=== PATIENT | female | born 1970 | race Caucasian/White ===

== ENCOUNTER 2020-05-17 00:23 | Emergency (ER) | payer MEDICARE, SELFPAY ==
[2020-05-17 00:24] VITALS: BP 136/71; PULSE 87; RESP 14; TEMP 36.8; O2SAT 99; BMI 34.0
[2020-05-17 00:48] LABS: Microscopic, Urine URINE MICROSCOPIC (MICROSCOPIC)
[2020-05-17 00:50] LABS: Appearance,Urine CLEAR (Clear); Bilirubin,Urine Negative (Negative); Blood, Urine TRACE-L (Negative); Color,Urine YELLOW (Yellow); Glucose,Urine (UA) Negative (Negative); Ketones,Urine Negative (Negative); Leukocyte Esterase,Urine 1+ (Negative); Nitrate,Urine Negative (Negative); PH,Urine 6.5 (5.0-8.5); Protein,Urine Negative (Negative); Specific Gravity, Urine <= 1.005 (1.005-1.030); Urobilinogen,Urine 0.2 EU/dl (0.2)
--- NOTE | 2020-05-17 00:51 | CT_ITS ---
PROCEDURE: CT ABDOMEN PELVIS W CON CLINICAL INDICATION: LLQ Left lower quadrant pain COMPARISON: CT ABDPELW CT abdomen pelvis w con from 09/20/2018 TECHNIQUE: IV Contrast: 75ML Isovue 370 Oral Contrast None Axial images obtained with sagittal and coronal reformats. All CT scans at the facility use one or more dose reduction, viz: automated exposure control, ma/kV adjustment per patient size (including targeted exams where dose is matched to indication, i.e. head), or iterative reconstruction technique. FINDINGS: LOWER THORAX: No acute finding ABDOMEN & PELVIS: Prior cholecystectomy. The liver and spleen have an unremarkable appearance. There is mild prominence of the pancreatic head which in part could be due to overlying unopacified duodenum. Repeat exam with pancreatic protocol may confirm with both IV and oral contrast. There are few small mesenteric lymph nodes. Minimal nodularity noted in the left adrenal gland nonspecific and not significantly changed. 2.7 cm right renal cyst. No renal or ureteral calculi. No intestinal obstruction or free air. There is non rotation of the bowel with small bowel on the right and large bowel on the left. No evidence of appendicitis or diverticulitis. The appendix is located in the right pelvic region. Urinary bladder is somewhat distended. There has been a prior hysterectomy. There is a small umbilical hernia containing fat. IMPRESSION: 1. No acute finding. 2. Mild prominence of the pancreatic head. Follow-up with pancreatic protocol with both IV and oral contrast may provide further evaluation. Dictated by: Frantz Vera MD 05/17/2020 08:39 Frantz Vera MD in [place] 05/17/2020 08:39
[2020-05-17 00:53] LABS: Basophils % 0.2 % (0.1-2.0); Eosinophils # 0.1 K/mm3 (0.0-0.4); Eosinophils % 0.8 % (0.1-12.0); Hematocrit 40.4 % (37.0-47.0); Hemoglobin 13.4 g/dL (12.2-16.2); Lymphocytes # 2.9 K/mm3 (0.7-4.5); Lymphocytes % 25.9 % (10-50); Mean Corpuscular HGB Conc 33.1 g/dL (31.8-35.4); Mean Corpuscular Hemoglobin 29.9 pg (27.0-31.2); Mean Corpuscular Volume 90.2 fl (81-99); Mean Platelet Volume 8.3 fl (7.4-10.4); Monocytes # 0.5 K/mm3 (0.1-1.0); Monocytes % 4.7 % (1.7-9.3); Neutrophils # 7.7 K/mm3 (1.8-7.8); Neutrophils % 68.4 % (37.0-80.0); Platelet Count 353 K/mm3 (142-424); Red Blood Count 4.48 M/mm3 (4.20-5.40); Red Cell Distribution Width 13.4 % (11.5-17.5); White Blood Count 11.2 K/mm3 (4.8-10.8)
[2020-05-17 00:53] LABS: WBC,Urine 20-50 #/hpf (0-3)
[2020-05-17 00:59] LABS: Chloride 102 mmol/L (98-107); Sodium 140 mmol/L (136-145)
[2020-05-17 01:01] LABS: Potassium 2.8 mmoL/L (3.5-5.1)
[2020-05-17 01:02] LABS: Alanine Aminotransferase 32 U/L (12-78); Amylase 61 U/L (30-110); Anion Gap 8.8 mEq/L (5-15); Aspartate Amino Transferase 36 U/L (14-36); Blood Urea Nitrogen 9 mg/dl (7-17); Carbon Dioxide 32 mmol/L (22.0-30.0); Creatinine Clearance Estimated 143 mL/min (50-200); Estimated Glomerular Filt Rate 105 ml/min (>60); GFR (African American) 128 ML/MIN (>60)
--- NOTE | 2020-05-17 01:02 | PC.NURSE ---
Critical K+ called from lab results to Dr Grimes
[2020-05-17 01:03] LABS: Albumin Level 4.5 g/dl (3.5-5.0); Albumin/Globulin Ratio 1.2 (1.1-1.8); Alkaline Phosphatase 91 U/L (38-126); Bilirubin,Total 0.6 mg/dl (0.2-1.3); Calcium 9.8 mg/dl (8.4-10.2); Globulin 3.7 g/dL (1.3-3.2); Glucose 117 mg/dl (74-100); Lipase 74 U/L (23-300); Total Protein,Serum 8.2 g/dl (6.3-8.2)
[2020-05-17 01:08] LABS: C-Reactive Protein 116.3 mg/L (0-4)
[2020-05-17 01:16] LABS: Erythrocyte Sedimentation Rate 73 mm/hr (0-30)
[2020-05-17 01:22] LABS: Procalcitonin 0.062 ng/mL (0.0-2.0)
--- NOTE | 2020-05-17 01:57 | HMH.EDNVD ---
ED Disposition Clinical Impression: Hypokalemia UTI (urinary tract infection) Qualifiers: Urinary tract infection type: site unspecified Hematuria presence: without hematuria Qualified Code(s): N39.0 - Urinary tract infection, site not specified Disposition: Home, Self-Care Condition on Discharge: Good Instructions: DI for Urinary Tract Infection (UTI) Additional Instructions: use meds and call pcp for follow up and urine culture results Prescriptions: levoFLOXacin [Levaquin 500mg tab] 500 mg PO DAILY #7 tab Transmission Status: Pending to [facility] Referrals: Alton Coello [Primary Care Provider] - - Critical Care Critical Care Time: No Attestation: On 05/17/20, the high probability of a clinically significant, sudden or life threatening deterioration of the following system(s) required my full and direct attention, intervention and personal management. The time I documented below is in addition to time spent performing reported procedures but includes the following listed in this critical care notation. Medical Decision Making - Medical Records Medical records reviewed: Yes: I reviewed the patient's medical records. - Julio Inquiry Pt receiving controlled substance: No Vital Signs: 05/17/20 00:24 Temperature 98.3 F Temperature Source Oral Pulse Rate [Right] 87 Respiratory Rate 14 Blood Pressure [Right Arm] 136/71 Blood Pressure Mean [Right Arm] 92 02 Sat by Pulse Oximetry 99 Oxygen Delivery Method Room Air - Lab Data Lab results reviewed: Yes: I reviewed the patient's lab results. Lab Results 05/17/20 00:25: Urine Color Yellow, Urine Appearance Clear, Urine pH 6.5, Ur Specific [place] <= 1.005, Urine Protein Negative, Urine Glucose (UA) Negative, Urine Ketones Negative, Urine Blood Trace-l, Urine Nitrate Negative, Urine Bilirubin Negative, Urine Urobilinogen 0.2, Ur Leukocyte Esterase 1+ A, Urine RBC 3-5, Urine WBC 20-50 05/17/20 00:45: WBC 11.2 H, RBC 4.48, Hgb 13.4, Hct 40.4, MCV 90.2, MCH 29.9, MCHC 33.1, RDW 13.4, Plt Count 353, MPV 8.3, Neut % (Auto) 68.4, Lymph % (Auto) 25.9, [place] % (Auto) 4.7, Eos % (Auto) 0.8, Baso % (Auto) 0.2, Neut # (Auto) 7.7, Lymph # (Auto) 2.9, [place] # (Auto) 0.5, Eos # (Auto) 0.1, Baso # (Auto) 0.0, ESR 73 H 05/17/20 00:45: Sodium 140, Potassium 2.8 L*, Chloride 102, Carbon Dioxide 32 H, Anion Gap 8.8, BUN 9, Creatinine 0.60, Estimated Creat Clear 143, Estimated GFR 105, Est GFR ( Amer) 128, Glucose 117 H, Calcium 9.8, Total Bilirubin 0.6, AST 36, ALT 32, Alkaline Phosphatase 91, C-Reactive Protein 116.3 H, Total Protein 8.2, Albumin 4.5, Globulin 3.7 H, Albumin/Globulin Ratio 1.2, Amylase 61, Lipase 74, Procalcitonin 0.062 Result diagrams: 05/17/20 00:45 05/17/20 00:45 Orders (Tests/Meds): ED MEDICATIONS Generic Name Dose Route Start Last Admin Trade Name Freq PRN Reason Stop Dose Admin Sodium Chloride 1,000 mls @ 999 mls/hr 05/17/20 00:45 05/17/20 00:47 Sod Chlor 0.9% 1000ml Bag IV 05/17/20 01:45 999 mls/hr .Q1H1M TAD Administration Ceftriaxone Sodium 1 gm/ 50 mls @ 100 mls/hr 05/17/20 01:00 05/17/20 01:00 Sodium Chloride IV 05/31/20 00:59 100 mls/hr Q24H TAD Administration Protocol Sodium Chloride 8 ml 05/17/20 00:43 Sodium Chloride 0.9% 10ml Vial IV 06/16/20 00:42 NEEDED PRN dilute pepcid Discontinued Medications Generic Name Dose Route Start Last Admin Trade Name Freq PRN Reason Stop Dose Admin Famotidine 20 mg 05/17/20 00:43 05/17/20 00:47 Famotidine 20mg/2ml Vial IV 05/17/20 00:44 20 mg ONCE ONE Administration Iopamidol 75 ml 05/17/20 01:28 05/17/20 01:29 Iopamidol-370 (76%);100ml Bottle IV 05/17/20 01:29 75 ml ONCE ONE Administration Ketorolac Tromethamine 30 mg 05/17/20 00:43 05/17/20 00:47 Ketorolac 30mg/Ml Vial IV 05/17/20 00:44 30 mg ONCE ONE Administration Metoclopramide HCl 10 mg 05/17/20 00:43 05/17/20 00:47 Metoclopramide H
[2020-05-17 02:31] VITALS: BP 119/67; PULSE 86; RESP 18; TEMP 36.8; O2SAT 99
== END 2020-05-17 02:34 | disposition home or self-care (01) ==
PROVIDERS: Emergency Provider Emergency Medicine; PCP Internal Medicine
DX: N30.00 Acute cystitis without hematuria (principal); B96.20 Unspecified Escherichia coli [E. coli] as the cause of diseases classified elsewhere; E87.6 Hypokalemia; F17.210 Nicotine dependence, cigarettes, uncomplicated
CPT/HCPCS: 74177; 80053; 81001; 82150; 83690; 84145; 85025; 85651; 86140; 87086; 87088; 87186; 96365; 96367; 96375; 99283; Q9967

== ENCOUNTER 2020-12-09 20:49 | Emergency (ER) | payer MEDICARE, SELFPAY ==
[2020-12-09 21:26] VITALS: BP 123/66; PULSE 89; RESP 18; TEMP 37.5; O2SAT 97; BMI 29.2
[2020-12-09 21:48] LABS: UTC Strep Screen (Rapid) Negative (Negative)
[2020-12-09 21:49] VITALS: BP 123/66; PULSE 89; RESP 18; TEMP 37.5
--- NOTE | 2020-12-09 21:56 | HMH.EDUTC ---
[facility] [place] Clinical Impression: Bronchitis Sinusitis Qualifiers: Sinusitis location: unspecified location Chronicity: unspecified Qualified Code(s): J32.9 - Chronic sinusitis, unspecified Disposition: Home, Self-Care Condition on Discharge: Good Instructions: Sinusitis, DI for Sinusitis, Azithromycin, DI for COVID-19 (Suspected or Confirmed ), Preventing the Spread of Coronavirus Discharge Instructions Additional Instructions: ? Start antibiotic today. Be sure to complete entire prescription even if feeling better ? Monitor temp. Tylenol every 4 hours as needed and / or ibuprofen every 6 hours as needed ( As long as your primary care physician has told you that it ok to take both. For fever/aches/pains ER if no less than 101 despite Tylenol or Motrin ? Humidifier/vaporizer or hot steamy shower ? Inhaler every 4-6 hours as needed like we discussed. If unsure how to use it, ask pharmacist to demonstrate how. Should help open airways and improve cough, wheezing, and shortness of breath ? Mucinex during the day for your cough and cough suppressant only at night. Be sure to drink lots of water. Insurance may not cover a prescriptions for mucinex. Might be cheaper to get 400mg tablets and take 2 tablet in the morning, mid-day and evening with lots of water. *Start steroid today. Helps with inflammation therefore, cough and wheezing. Follow directions on the package. Reviewed side effects. Patient reports taking them before. Follow up IMMEDIATELY for new or worsening of symptoms OR no noticeable improvement over the next 48-72 hours. 911 immediately for any life threatening symptoms such as chest pain or difficulty breathing Prescriptions: Albuterol Sulfate [Proventil-HFA 90mcg/puff Inh] 1 - 2 puffs IH Q6HP PRN #1 each PRN Reason: Shortness Of Breath Transmission Status: Pending to [facility] predniSONE [Prednisone 20mg Tab] 20 mg PO BID 5 Days #10 tab Transmission Status: Pending to [facility] Azithromycin [Z-Humza 250mg Tab] 250 mg PO DIRECTED #6 tab [facility]: [facility] Referrals: Alton Coello [Primary Care Provider] - As needed Forms: Work/School Release Medical Decision Making - Julio Inquiry Pt receiving controlled substance: No Julio was queried for this patient: No Vital Signs: 12/09/20 21:26 12/09/20 21:49 Temperature 99.5 F 99.5 F Temperature Source Oral Pulse Rate 89 Pulse Rate [Left] 89 Respiratory Rate 18 18 Blood Pressure 123/66 Blood Pressure [Right Arm] 123/66 Blood Pressure Mean [Right Arm] 85 02 Sat by Pulse Oximetry 97 - Lab Data Lab results reviewed: Yes: I reviewed the patient's lab results. Lab Results 12/09/20 21:47: Strep Scn Rapid Clinic Negative Orders (Tests/Meds): ORDERS Category Date Time Status Covid-19 Nasal PCR ([facility]) Routine Lab 12/09/20 21:47 Ordered Strep Screen Confirmation Stat Micro 12/09/20 21:47 [place] [facility] [place] - General Stated complaint: cough,CHAPIN,earache Time Seen by Provider: 12/09/20 21:56 Mode of Arrival: Ambulatory Source of Information: Patient Limitations: No Limitations Description of Symptoms (Recalled from Triage Doc. by RN): pt c/o cough, CHAPIN, and sweating/chilling. no appetite. since yesterday. HEENT Symptoms (Recalled from RN notes): Yes (CHAPIN) Resp Symptoms (Recalled from RN notes): Yes (cough) Skin Symptoms (Recalled from RN notes): No MS Symptoms (Recalled from RN notes): No Functional Status (Recalled from RN notes): sweating/chilling and fever - History of Present Illness Provider Complaint: Patient states that she has been having sinus pain and pressure on and off for a week or so and for the last couple of days it has got worse and she has been having headache feeling feverish, chills and cough States that she was worried and wanted to get tested for COVID - Related Data Previous Rx's Medication Instructions Recorded Naproxen 500 mg PO
== END 2020-12-09 22:13 | disposition home or self-care (01) ==
PROVIDERS: Emergency Provider Nurse Practitioner; PCP Internal Medicine
DX: J40 Bronchitis, not specified as acute or chronic (principal); J32.9 Chronic sinusitis, unspecified
CPT/HCPCS: 87880; 99203; C9803; G0463; U0003; U0005

== ENCOUNTER 2021-01-18 21:50 | Emergency (ER) | payer MEDICARE, SELFPAY ==
--- NOTE | 2021-01-18 22:10 | PC.NURSE ---
pt decides to leave without being seen at this time.
[2021-01-18 22:15] VITALS: BP 0/0; PULSE 0; RESP 0; TEMP -17.7; TEMP 0
== END 2021-01-18 22:15 | disposition left against medical advice (07) ==
LOC: ER 22:13
PROVIDERS: Emergency Provider Emergency Medicine; PCP Internal Medicine
DX: Z53.21 Procedure and treatment not carried out due to patient leaving prior to being seen by health care provider (principal)
CPT/HCPCS: G0463; 99211

== ENCOUNTER 2021-10-07 22:35 | Emergency (ER) | payer MEDICARE, SELFPAY ==
[2021-10-07 22:36] VITALS: BP 131/65; PULSE 84; RESP 19; TEMP 36.9; O2SAT 98; BMI 28.3
[2021-10-07 23:28] LABS: Coronavirus 19, PCR Not Detected (NotDetected); Influenza A, PCR Not Detected (NotDetected); Influenza B, PCR Not Detected (NotDetected); Microscopic, Urine URINE MICROSCOPIC (MICROSCOPIC)
[2021-10-07 23:30] LABS: Appearance,Urine CLEAR (Clear); Bilirubin,Urine Negative (Negative); Blood, Urine Negative (Negative); Color,Urine YELLOW (Yellow); Glucose,Urine (UA) Negative (Negative); Ketones,Urine Negative (Negative); Leukocyte Esterase,Urine TRACE (Negative); Nitrate,Urine Negative (Negative); Protein,Urine Negative (Negative); Specific Gravity, Urine <= 1.005 (1.005-1.030); Urobilinogen,Urine 0.2 EU/dl (0.2)
[2021-10-07 23:35] LABS: Amorphous Sediment,Urine Trace /lpf; Mucus,Urine Trace /lpf
[2021-10-08 00:30] VITALS: BP 114/63; PULSE 75; O2SAT 97
[2021-10-08 01:00] VITALS: BP 113/56; PULSE 73; O2SAT 97
[2021-10-08 01:00] LABS: Basophils # 0.2 K/mm3 (0-0.2); Basophils % 2.6 % (0.1-2.0); Eosinophils # 0.2 K/mm3 (0.0-0.4); Eosinophils % 1.8 % (0.1-12.0); Hematocrit 41.5 % (37.0-47.0); Hemoglobin 13.8 g/dL (12.2-16.2); Lymphocytes # 2.8 K/mm3 (0.7-4.5); Lymphocytes % 33.7 % (10-50); Mean Corpuscular HGB Conc 33.2 g/dL (31.8-35.4); Mean Corpuscular Hemoglobin 30.4 pg (27.0-31.2); Mean Corpuscular Volume 91.5 fl (81-99); Mean Platelet Volume 8.6 fl (7.4-10.4); Monocytes # 0.3 K/mm3 (0.1-1.0); Monocytes % 3.9 % (1.7-9.3); Neutrophils # 4.7 K/mm3 (1.8-7.8); Neutrophils % 57.9 % (37.0-80.0); Platelet Count 333 K/mm3 (142-424); Red Blood Count 4.54 M/mm3 (4.20-5.40); Red Cell Distribution Width 13.8 % (11.5-17.5); White Blood Count 8.2 K/mm3 (4.8-10.8)
[2021-10-08 01:02] LABS: Chloride 104 mmol/L (98-107)
[2021-10-08 01:03] LABS: Albumin Level 4.2 g/dl (3.5-5.0); Sodium 140 mmol/L (136-145)
[2021-10-08 01:04] LABS: Blood Urea Nitrogen 5 mg/dl (7-17); Creatinine Clearance Estimated 118 mL/min (50-200); Estimated Glomerular Filt Rate 105 ml/min (>60); GFR (African American) 127 ML/MIN (>60)
[2021-10-08 01:05] LABS: Alanine Aminotransferase 20 U/L (12-78); Alkaline Phosphatase 47 U/L (38-126); Aspartate Amino Transferase 24 U/L (14-36); Bilirubin,Total 0.4 mg/dl (0.2-1.3); Carbon Dioxide 30 mmol/L (22.0-30.0)
[2021-10-08 01:06] LABS: Albumin/Globulin Ratio 1.6 (1.1-1.8); Globulin 2.6 g/dL (1.3-3.2); Glucose 115 mg/dl (74-100); Total Protein,Serum 6.8 g/dl (6.3-8.2)
[2021-10-08 01:10] LABS: C-Reactive Protein 10.8 mg/L (0-4)
[2021-10-08 01:20] LABS: Calcium 9.4 mg/dl (8.4-10.2)
--- NOTE | 2021-10-08 01:21 | PC.NURSE ---
notified a critical potassium
[2021-10-08 01:24] LABS: Procalcitonin 0.038 ng/mL (0.0-2.0)
[2021-10-08 01:30] VITALS: BP 108/63; PULSE 77; O2SAT 98
[2021-10-08 01:36] LABS: Erythrocyte Sedimentation Rate 18 mm/hr (0-30)
[2021-10-08 02:00] VITALS: BP 117/63; PULSE 68; O2SAT 98
--- NOTE | 2021-10-08 02:05 | HMH.EDNVD ---
ED Disposition Clinical Impression: Dermatitis Disposition: Home, Self-Care Condition on Discharge: Good Instructions: DI for Nausea -- Adult Additional Instructions: fluids and use meds as directed and see pcp for follow up and test results Prescriptions: Minocycline HCl [Minocycline HCl 100mg Tab*] 100 mg PO BID #20 tab Transmission Status: Pending to [facility] Ondansetron [Zofran 4mg ODT] 4 mg PO TIDP PRN #21 tab PRN Reason: Nausea And Vomiting Transmission Status: Pending to [facility] Referrals: Alton Coello [Primary Care Provider] - - Critical Care Critical Care Time: No Attestation: On 10/07/21, the high probability of a clinically significant, sudden or life threatening deterioration of the following system(s) required my full and direct attention, intervention and personal management. The time I documented below is in addition to time spent performing reported procedures but includes the following listed in this critical care notation. Medical Decision Making - Medical Records Medical records reviewed: Yes: I reviewed the patient's medical records. - Julio Inquiry Pt receiving controlled substance: No Vital Signs: 10/07/21 22:36 10/08/21 00:30 10/08/21 01:00 Temperature 98.4 F Temperature Source Oral Pulse Rate 75 73 Pulse Rate [Right] 84 Respiratory Rate 19 Blood Pressure 114/63 113/56 L Blood Pressure [Right Arm] 131/65 Blood Pressure Mean [Right Arm] 87 Blood Pressure Source [Right Arm] Automatic Cuff 02 Sat by Pulse Oximetry 98 97 97 Oxygen Delivery Method Room Air Room Air Room Air 10/08/21 01:30 Temperature Temperature Source Pulse Rate 77 Pulse Rate [Right] Respiratory Rate Blood Pressure 108/63 L Blood Pressure [Right Arm] Blood Pressure Mean [Right Arm] Blood Pressure Source [Right Arm] 02 Sat by Pulse Oximetry 98 Oxygen Delivery Method Room Air - Lab Data Lab results reviewed: Yes: I reviewed the patient's lab results. Lab Results 10/07/21 23:23: SARS-CoV-2 (PCR) Not detected, Influenza A Untype (PCR) Not detected, Influenza Type B (PCR) Not detected 10/07/21 23:23: Urine Color Yellow, Urine Appearance Clear, Urine pH 6.0, Ur Specific [place] <= 1.005, Urine Protein Negative, Urine Glucose (UA) Negative, Urine Ketones Negative, Urine Blood Negative, Urine Nitrate Negative, Urine Bilirubin Negative, Urine Urobilinogen 0.2, Ur Leukocyte Esterase Trace, Urine WBC 3-5, Ur Squamous Epith Cells 3-5, Amorphous Sediment Trace, Urine Mucus Trace 10/08/21 00:00: ESR 18 10/08/21 00:00: C-Reactive Protein 10.8 H, Procalcitonin 0.038 10/08/21 00:00: WBC 8.2, RBC 4.54, Hgb 13.8, Hct 41.5, MCV 91.5, MCH 30.4, MCHC 33.2, RDW 13.8, Plt Count 333, MPV 8.6, Neut % (Auto) 57.9, Lymph % (Auto) 33.7, [place] % (Auto) 3.9, Eos % (Auto) 1.8, Baso % (Auto) 2.6 H, Neut # (Auto) 4.7, Lymph # (Auto) 2.8, [place] # (Auto) 0.3, Eos # (Auto) 0.2, Baso # (Auto) 0.2 10/08/21 00:00: Sodium 140, Potassium 3.0 L, Chloride 104, Carbon Dioxide 30, Anion Gap 9.0, BUN 5 L, Creatinine 0.60, Estimated Creat Clear 118, Estimated GFR 105, Est GFR ( Amer) 127, Glucose 115 H, Calcium 9.4, Total Bilirubin 0.4, AST 24, ALT 20, Alkaline Phosphatase 47, Total Protein 6.8, Albumin 4.2, Globulin 2.6, Albumin/Globulin Ratio 1.6 Result diagrams: 10/08/21 00:00 10/08/21 00:00 Orders (Tests/Meds): ED MEDICATIONS Generic Name Dose Route Start Last Admin Trade Name Freq PRN Reason Stop Dose Admin Sodium Chloride 1,000 mls @ 999 mls/hr 10/08/21 01:00 10/08/21 00:58 Sod Chlor 0.9% 1000ml Bag IV 10/08/21 02:00 999 mls/hr .Q1H1M TAD Administration Discontinued Medications Generic Name Dose Route Start Last Admin Trade Name Freq PRN Reason Stop Dose Admin Diphenhydramine HCl 25 mg 10/08/21 00:53 10/08/21 00:59 Diphenhydramine 50mg/Ml Vial IV 10/08/21 00:54 25 mg ONCE ONE Administration Ketorolac Tromethamine 30 mg 10/08/21 02:11 Ketor
--- NOTE | 2021-10-08 02:27 | PC.NURSE ---
patient is currently sitting in bed with daughter at bedside. Nurse rashmi blood cultures on patient and gave 30mg IV toradol and 100mg po Doxycycline per MD order. Patient was informed of the purpose of blood cultures and told that the results could be viewed on her patient portal or are also accessible thru medical records or by contacting her pcp. Patient verbalized her understanding.
[2021-10-08 02:42] VITALS: BP 117/63; PULSE 68; RESP 18; TEMP 36.8; O2SAT 99
[2021-10-12 23:07] LABS: Lyme B. burgdorferi PCR Blood Negative (Negative)
[2021-10-15 01:10] LABS: Rocky Mtn Spotted Fever, IgM 0.24 index (0.00-0.89)
[2021-10-15 09:12] LABS: A. phagocytophilum,PCR Negative (Negative); Ehrlichia chaffeensis Negative (Negative)
== END 2021-10-08 02:45 | disposition home or self-care (01) ==
PROVIDERS: Emergency Provider Emergency Medicine; PCP Internal Medicine
DX: L30.9 Dermatitis, unspecified (principal); R11.0 Nausea; R19.7 Diarrhea, unspecified; R51.9 Headache, unspecified; R50.9 Fever, unspecified; R05.9 Cough, unspecified; R82.90 Unspecified abnormal findings in urine
CPT/HCPCS: 80053; 81001; 84145; 85025; 85651; 86140; 86609; 87040; 87086; 87476; 87798; 96365; 96375; 99284; C9803; J2405; U0003; U0005

== ENCOUNTER 2023-10-10 22:44 | Emergency (ER) | payer MEDICARE, MEDICAID, SELFPAY ==
[2023-10-10 22:45] VITALS: BP 139/73; PULSE 96; RESP 16; TEMP 36.8; O2SAT 98; BMI 32.9
--- NOTE | 2023-10-10 23:21 | ED_ITS ---
Discharge Plan Disposition Patient Disposition: Home, Self-Care Condition: Good Prescriptions Prescriptions: New amoxicillin-pot clavulanate 875-125 mg tablet 1 tab PO BID Qty: 20 0RF ciprofloxacin-dexamethasone 0.3-0.1 % drops,suspension 4 drp otic (ear) BID 7 Days Qty: 7.5 0RF fluticasone propionate [Flonase Allergy Relief] 50 mcg/actuation spray,suspension 1 spray intranasal BID Qty: 16 0RF Rx Instructions: administer into each nostril No Action albuterol sulfate 200 PUFFS HFA aerosol inhaler 1 - 2 puffs IH Q6HP PRN (Reason: Shortness Of Breath) Qty: 1 0RF naproxen 500 MG tablet 500 mg PO BID 10 Days Qty: 20 0RF minocycline 100 MG tablet 100 mg PO BID Qty: 20 0RF ondansetron 4 MG tablet,disintegrating 4 mg PO TIDP PRN (Reason: Nausea And Vomiting) Qty: 21 0RF Referrals Follow up/Referrals: Alton Coello [Primary Care Provider] - See instructions Activity Restrictions/Add. Instructions Additional Instructions/Restrictions: You were evaluated in the emergency department today and diagnosed with an ear infection. Please picker/puller your prescriptions at the pharmacy and take the full prescriptions as prescribed. Follow-up closely with your primary care provider. Take Tylenol and ibuprofen at home as needed for pain. Return to the emergency department for new or worsening symptoms. Clinical Impressions Clinical Impression: Acute right otitis media, External otitis of right ear Instructions Patient Instructions: DI for Otitis Externa Discharge ED Provider: Mireya Oneill General Adult HPI General Chief complaint: Ear Stated complaint: ear ache Time Seen by Provider: 10/10/23 22:53 Mode of Arrival: Ambulatory Source of Information: Patient Limitations: No Limitations Description of Symptoms (Recalled from ER Triage Doc. by RN): Pt presents to ED for R ear pain/pressure that started approx 2 weeks ago. Pt states she has not taken any OTC meds or visited her PCP. Pt states her ear pain is 8/10 at this time. Pt is A&O*4 and family is bedside. History of Present Illness HPI narrative: This patient is a 52-year-old female who denies significant past medical history presenting to the emergency department for evaluation with concern for right ear pain. Patient states that the pain started approximately 2 weeks ago. No ear drainage, dizziness, significant headache, vision changes, or other concerns noted. She has not been seen for this previously and has not taken any medications at home. Nothing seems to make it better or worse. Related Data Previous Rx's Medication Instructions Recorded naproxen 500 mg tablet 500 mg PO BID 10 days #20 tabs 04/04/19 albuterol sulfate 90 mcg/actuation 1 - 2 puffs IH Q6HP PRN Shortness 12/09/20 aerosol inhaler Of Breath #1 ea minocycline 100 mg tablet 100 mg PO BID #20 tabs 10/08/21 ondansetron 4 mg disintegrating 4 mg PO TIDP PRN Nausea And 10/08/21 tablet Vomiting #21 tabs amoxicillin 875 mg-potassium 1 tab PO BID #20 tabs 10/10/23 clavulanate 125 mg tablet ciprofloxacin 0.3 %-dexamethasone 4 drp otic (ear) BID 7 days #7.5 mL 10/10/23 0.1 % ear drops,suspension fluticasone propionate 50 1 spray intranasal BID #16 grams 10/10/23 mcg/actuation nasal spray,suspension (Flonase Allergy Relief) Allergies Allergy/AdvReac Type Severity Reaction Status Date / Time No Known Allergies Allergy Verified 05/17/20 00:44 [facility] Disclaimer: The information contained in this section may have been updated after the patient was seen, as this information can be updated by other users. Social History Smoking Status: Current every day smoker tobacco type: cigarettes packs per day: 1 alcohol intake: never current occupational status: disabled Travel in the last 8 weeks: None household members: spouse and children housing: house ROS Obtained: Yes All systems reviewed & no additional complaints except as documented Physical Exam General General appearance: alert, in no apparent distress and obese Head Head exam: atraumatic and normocephalic Eye Eye exam: Present normal appearance, PERRL and EOMI ENT ENT exam: Present normal oropharynx, mucous membranes moist and normal external ear exam Expanded ENT Exam External ear exam: Present normal external inspection; Absent auricular hematoma, auricular trauma, mastoid tenderness, pain with movement, external tenderness or periauricular adenopathy TM/Canal exam: Right TM: erythema, bulging, effusion, canal discharge and canal tenderness Nasal speculum exam: Bilateral: normal Mouth exam: Present normal external inspection Teeth exam: Present normal inspection Throat exam: Present normal inspection Neck Neck exam: Present normal inspection, full ROM and trachea midline; Absent tenderness Chest Chest inspection: Present normal inspection and symmetric chest wall rise; Absent tenderness Respiratory Respiratory exam: Present normal lung sounds bilaterally; Absent respiratory distress, wheezes, stridor or accessory muscle use Cardiovascular Cardiovascular exam: Present regular rate and normal rhythm Abdominal Exam Abdominal exam: Present soft; Absent distention, tenderness or guarding Extremities Exam Extremities exam: Present normal inspection, full ROM and normal capillary refil l; Absent tenderness or edema Back Exam Back exam: Present normal inspection and full ROM; Absent tenderness Neurological Exam Neurological exam: Present alert, oriented X3, CN II-XII intact and normal gait; Absent motor sensory deficit Psychiatric Psychiatric exam: Present normal affect and normal mood Skin Skin exam: Present warm and dry Medical Decision Making Medical Records Medical records reviewed: Yes I reviewed the patient's medical records. Julio Inquiry Pt receiving controlled substance: No Vital Signs: 10/10/23 22:45 Temperature 98.2 F Temperature Source Oral Pulse Rate [Left] 96 H Respiratory Rate 16 Blood Pressure [Right Arm] 139/73 Blood Pressure Mean [Right Arm] 95 02 Sat by Pulse Oximetry 98 Oxygen Delivery Method Room Air Lab Data Lab results reviewed: Yes I reviewed the patient's lab results. Orders (Tests/Meds): ED MEDICATIONS Discontinued Medications Generic Name Dose Route Start Last Admin Trade Name Freq PRN Reason Stop Dose Admin Acetaminophen 1,000 mg 10/10/23 23:15 Acetaminophen 500mg Tab PO 10/10/23 23:16 ONCE ONE Amoxicillin/Clavulanate Potassium 1 each 10/10/23 23:15 Amoxicillin/Clavulanate Potassium 875/125mg Tablet PO 10/10/23 23:16 ONCE ONE Ibuprofen 800 mg 10/10/23 23:15 Ibuprofen 400 Mg Tablet PO 10/10/23 23:16 ONCE ONE Medical Decision Narrative: In summary, this patient is a 52-year-old female presenting to the Emergency Department for evaluation of right ear pain. Differential diagnoses considered include but are not limited to otitis media, otitis externa, TM perforation, foreign body. Ruling out the most morbid conditions drove assessment. On exam, the patient is well-appearing. She has a suppurative effusion behind her right TM as well as significant erythema and irritation to her right ear can al with discharge noted. Findings concerning for both right otitis media and otitis externa. No evidence of perforation on clinical exam. No mastoid tenderness or other issues to suggest mastoiditis or more significant infection. At this time, I feel the patient is appropriate for discharge home with prescriptions for Augmentin as well as Ciprodex to treat otitis media and otitis externa. She is also given Flonase. She was given first dose of Augmentin here as well as Tylenol and ibuprofen for pain. Patient was discharged with strict return precautions, instructions for close outpatient follow-up, and instructions for supportive management. Critical Care Critical Care Time Critical Care Time: No
[2023-10-10 23:22] VITALS: BP 125/76; PULSE 91; RESP 16; TEMP 36.8; O2SAT 96
[2023-10-10] MEDS: ACETAMINOPHEN 500MG TAB 1000 MG PO (23:28)
[2023-10-10] MEDS: AMOXICILLIN/CLAVULANATE POTASSIUM 875/125MG TABLET 1 EACH PO (23:28)
[2023-10-10] MEDS: IBUPROFEN 400 MG TABLET 800 MG PO (23:29)
== END 2023-10-10 23:32 | disposition home or self-care (01) ==
PROVIDERS: Emergency Provider Emergency Medicine; PCP Internal Medicine
DX: H66.91 Otitis media, unspecified, right ear (principal); H60.91 Unspecified otitis externa, right ear; H92.01 Otalgia, right ear; F17.210 Nicotine dependence, cigarettes, uncomplicated
CPT/HCPCS: 99283

== ENCOUNTER 2025-02-10 20:50 | Emergency (ER) | payer MEDICARE, MEDICAID, SELFPAY ==
[2025-02-10] VITALS (9 sets, daily range): BP systolic 93–127; BP diastolic 47–74; PULSE 77–90; RESP 11–22; TEMP 36.7–36.8; O2SAT 95–99; BMI 34.7
--- NOTE | 2025-02-10 20:58 | ECG_ITS ---
APPROVED REPORT Exam: Resting ECG HR:94 bpm ECG Measurements Heart Rate 94 AXES CO 144 P 35 QRSd 83 QRS 13 QT 352 T 47 QTc 404 Conclusion SINUS RHYTHM WITH SINUS ARRHYTHMIA POSSIBLE RIGHT VENTRICULAR CONDUCTION DELAY [RSR (QR) IN V1/V2] BORDERLINE ECG Electronically signed by : ANA MARIA BISWAS, 02/15/2025 07:37:42
--- NOTE | 2025-02-10 20:59 | XR_ITS ---
PROCEDURE INFORMATION: Exam: XR Chest Exam date and time: 02/10/2025 9:17 PM Age: 54 years old Clinical indication: Shortness of breath; Additional info: SOB TECHNIQUE: Imaging protocol: Radiologic exam of the chest. Views: 1 view. Total images: 1 COMPARISON: CR XR CHEST 2V 11/23/2018 1:16 AM FINDINGS: Tubes, catheters and devices: EKG leads are present. Lungs: Chronic mild accentuation of bronchovascular markings. No consolidation. No pulmonary vascular congestion or edema. Pleural spaces: Unremarkable. No pleural effusion. No pneumothorax. Heart/Mediastinum: Unremarkable. No cardiomegaly. No mediastinal widening or hilar enlargement. Bones/joints: Thoracic scoliosis. Stable chest wall structures. IMPRESSION: No radiographically acute cardiopulmonary process.
--- NOTE | 2025-02-10 21:00 | [facility].EDGENADL ---
Discharge Plan Disposition Patient Disposition: Home, Self-Care Condition: Good Prescriptions Prescriptions: New sulfamethoxazole-trimethoprim [Bactrim DS] 800-160 mg tablet 1 tab PO BID 7 Days Qty: 14 0RF ondansetron 4 mg tablet,disintegrating 4 mg PO Q8H PRN (Reason: nausea and vomiting) 4 Days Qty: 12 0RF No Action albuterol sulfate 200 PUFFS HFA aerosol inhaler 1 - 2 puffs IH Q6HP PRN (Reason: Shortness Of Breath) Qty: 1 0RF amoxicillin-pot clavulanate 875-125 mg tablet 1 tab PO BID Qty: 20 0RF ciprofloxacin-dexamethasone 0.3-0.1 % drops,suspension 4 drp otic (ear) BID 7 Days Qty: 7.5 0RF fluticasone propionate [Flonase Allergy Relief] 50 mcg/actuation spray,suspension 1 spray intranasal BID Qty: 16 0RF Rx Instructions: administer into each nostril naproxen 500 MG tablet 500 mg PO BID 10 Days Qty: 20 0RF minocycline 100 MG tablet 100 mg PO BID Qty: 20 0RF ondansetron 4 MG tablet,disintegrating 4 mg PO TIDP PRN (Reason: Nausea And Vomiting) Qty: 21 0RF Referrals Follow up/Referrals: Alton Coello [Primary Care Provider, Medical] - See instructions Activity Restrictions/Add. Instructions Additional Instructions/Restrictions: At this time it was felt you are safe to be discharged home. If new or worsening symptoms please do not hesitate to return the emergency department. Please take your antibiotics as prescribed. We found a couple of nonemergent things on your CT scan today such as mildly enlarged lymph nodes in your chest as well as a mild spot on your adrenal gland, these are nonemergent and just need to be watched over time by your family physician. Please follow-up with your primary care doctor in 2 to 3 days for reevaluation. Clinical Impressions Clinical Impression: Shortness of breath, Abdominal pain, UTI (urinary tract infection), Mediastinal adenopathy, Adrenal adenoma Print Language Print Language: Greenlandic Discharge ED Provider: Sammy Mendez General Adult HPI <Sammy Mendez MD - Last Filed: 02/10/25 22:51> General Chief complaint: Shortness of Breath/Dyspnea Stated complaint: Bad cough, vomitting, SOA Time Seen by Provider: 02/10/25 20:58 History of Present Illness HPI narrative: Patient is a 54-year-old female with past medical history of previous cholecystectomy, chronic smoker who presents emergency department for evaluation of cough, shortness of breath, abdominal pain, vomiting. Her cough has been going on over the last week, over the last 24 hours she has had onset of nonbloody vomiting, last stool today nonbloody. She has periumbilical and left hemiabdominal pain as well as cloudy urine. No chest pain. Due to persistent symptoms she presents here for continued evaluation. Positive sick contacts. No other acute complaints at this time. Please note that above description of symptoms, in this electronic medical record under categorization of recalled from ER triage doctor by RN are reflective of an initial nursing assessment, however, is not reflective of my full history and physical exam that was personally taken and clarified. Consequentially, this preceding description of symptoms, which may include the patient's categorized chief complaint in the EMR, do not reflect my personal clinical impression, and the ultimate description of history of present illness and patient stated complaints should be deferred to this section of the note. Unless stated otherwise or congruent with this section of the note, additional signs, symptoms, or incongruence should be interpreted as inaccurate with my clinical impression. Related Data Previous Rx's ?Medication ?Instructions ?Recorded naproxen 500 mg tablet 500 mg PO BID 10 days #20 tabs 04/04/19 albuterol sulfate 90 mcg/actuation 1 - 2 puffs IH Q6HP PRN Shortness 12/09/20 aerosol inhaler Of Breath #1 ea minocycline 100 mg tablet 100 mg PO BID #20 tabs 10/08/21 ondansetron 4 mg disintegrating 4 mg PO TIDP PRN Nausea And 10/08/21 tablet Vomiting #21 tabs amoxicillin 875 mg-potassium 1 tab PO BID #20 tabs 10/10/23 clavulanate 125 mg tablet ciprofloxacin 0.3 %-dexamethasone 4 drp otic (ear) BID 7 days #7.5 mL 10/10/23 0.1 % ear drops,suspension fluticasone propionate 50 1 spray intranasal BID #16 grams 10/10/23 mcg/actuation nasal spray,suspension (Flonase Allergy Relief) ondansetron 4 mg disintegrating 4 mg PO Q8H PRN nausea and 02/10/25 tablet vomiting 4 days #12 tabs sulfamethoxazole 800 1 tab PO BID 7 days #14 tabs 02/10/25 mg-trimethoprim 160 mg tablet (Bactrim DS) Allergies Allergy/AdvReac Type Severity Reaction Status Date / Time No Known Allergies Allergy Verified 05/17/20 00:44 PFSH <Sammy Mendez MD - Last Filed: 02/10/25 22:51> PFS Disclaimer: The information contained in this section may have been updated after the patient was seen, as this information can be updated by other users. Social History Smoking Status: Current every day smoker tobacco type: cigarettes packs per day: 1 alcohol intake: never current occupational status: disabled Travel in the last 8 weeks?: None household members: spouse and children housing: house Have you lived/traveled outside US in past 30 days?: No Contact w/someone who lives/traveled outside US past 30 days?: No Exposure to someone with infectious disease in past 14 days?: No Do you have a fever (greater than 100.4 F or 38 C)?: No Have you tested positive for COVID-19?: No Exposed to someone with COVID-19 in past 14 days?: No Do you have a sore throat?: No Do you have a cough?: No Do you have any weakness?: No Do you have any diarrhea?: No Are you experiencing any unusual bleeding?: No Do you have any muscle aches/pain?: No Do you have any abdominal pain?: No Are you experiencing loss of taste or smell?: No Other Medical History Have you received the Flu Vaccine for this season: Yes Have you received the Pneumonia Vaccine: No <Sammy Mendez MD - Last Filed: 02/10/25 22:51> ROS Obtained: Yes Systems reviewed as appropriate & no additional complaints except as documented Physical Exam <Sammy Mendez MD - Last Filed: 02/10/25 22:51> General General appearance: alert and in no apparent distress Head Head exam: atraumatic and normocephalic Eye Eye exam: Present PERRL and EOMI ENT ENT exam: Present normal oropharynx and mucous membranes moist Neck Neck exam: Present normal inspection Chest Chest inspection: Present normal inspection and symmetric chest wall rise Respiratory Respiratory exam: Present normal lung sounds bilaterally; Absent respiratory distress or wheezes Cardiovascular Cardiovascular exam: Present regular rate and normal rhythm Abdominal Exam Abdominal exam: Present soft and tenderness (Left periumbilical and left lower quadrant); Absent rebound or rigidity Extremities Exam Extremities exam: Present normal inspection Neurological Exam Neurological exam: Present alert and CN II-XII intact Psychiatric Psychiatric exam: Present normal affect Skin Skin exam: Present warm and dry Medical Decision Making <Sammy Mendez MD - Last Filed: 02/10/25 22:51> Medical Records Screening: Per USPSTF and CDC recommendations, given the prevalence of disease in our region, it is our hospital?s policy to screen for HIV and viral Hepatitis for all patients aged 18 and over and those with ongoing risk factors. Julio Inquiry Pt receiving controlled substance: No Vital Signs: 02/10/25 21:01 02/10/25 21:04 02/10/25 21:06 Temperature 98.1 F 98.1 F Temperature Source Oral Pulse Rate 90 Pulse Rate [Right] 90 Respiratory Rate 18 16 Blood Pressure 127/74 Blood Pressure [Right Arm] 127/74 Blood Pressure Mean Blood Pressure Mean [Right Arm] 91 02 Sat by Pulse Oximetry 99 99 99 Oxygen Delivery Method Room Air Room Air Room Air 02/10/25 21:30 02/10/25 22:00 02/10/25 22:30 Temperature Temperature Source Pulse Rate 77 82 83 Pulse Rate [Right] Respiratory Rate 12 13 22 Blood Pressure 93/62 L 110/49 L 98/47 L Blood Pressure [Right Arm] Blood Pressure Mean 74 69 69 Blood Pressure Mean [Right Arm] 02 Sat by Pulse Oximetry 95 95 96 Oxygen Delivery Method 02/10/25 22:42 02/10/25 23:34 02/10/25 23:51 Temperature 98.3 F Temperature Source Pulse Rate 81 78 78 Pulse Rate [Right] Respiratory Rate 14 12 11 L Blood Pressure 110/49 L 103/61 L 99/60 L Blood Pressure [Right Arm] Blood Pressure Mean Blood Pressure Mean [Right Arm] 02 Sat by Pulse Oximetry 96 96 Oxygen Delivery Method Room Air Room Air Room Air Lab Data Lab Results 02/10/25 21:00: WBC 10.5, RBC 4.88, Hgb 14.7, Hct 44.2, MCV 90.6, MCH 30.1, MCHC 33.3, RDW 13.5, Plt Count 287, MPV 9.8, Neut % (Auto) 66.3, Lymph % (Auto) 26.4, [place] % (Auto) 5.0, Eos % (Auto) 1.0, Baso % (Auto) 0.6, Neut # (Auto) 7.0, Lymph # (Auto) 2.8, [place] # (Auto) 0.5, Eos # (Auto) 0.1, Baso # (Auto) 0.1, D-Dimer 0.70 H, VBG pH 7.32, VBG pCO2 56.1 H, VBG pO2 32.5, VBG HCO3 28.0, VBG Total CO2 29.7 H, VBG O2 Saturation 68.6, VBG Base Excess 1.8, VBG Lactic Acid 1.4, Sodium 143, Potassium 3.3 L, Chloride 102, Carbon Dioxide 29, Anion Gap 15.3 H, BUN 10, Creatinine 0.80, Estimated Creat Clear 107, Estimated GFR 74, Est GFR ( Amer) 90, Glucose 103 H, Calcium 9.1, Total Bilirubin 0.5, AST 35, ALT 36, Alkaline Phosphatase 61, Troponin I < 0.01, NT-Pro-B Natriuret Pep < 20.0, Total Protein 7.5, Albumin 4.5, Globulin 3.0, Albumin/Globulin Ratio 1.5, Lipase 102, HCV Ab MACHELLE w/Rflx PCR Qn Negative 02/10/25 21:07: SARS-CoV-2 (PCR) Not detected, Influenza A Untype (PCR) Not detected, Influenza Type B (PCR) Not detected 02/10/25 21:15: Urine Color Yellow, Urine Appearance Sl cloudy, Urine pH 6.0, Ur Specific [place] 1.015, Urine Protein Negative, Urine Glucose (UA) Negative, Urine Ketones Negative, Urine Blood Negative, Urine Nitrate Negative, Urine Bilirubin Negative, Urine Urobilinogen 0.2, Ur Leukocyte Esterase 2+ A, Urine RBC 10-20, Urine WBC Tntc, Ur Squamous Epith Cells 20-50, Urine Bacteria 4+ 02/10/25 21:56: Urine Color Yellow, Urine Appearance Sl cloudy, Urine pH 6.5, Ur Specific [place] <= 1.005, Urine Protein Negative, Urine Glucose (UA) Negative, Urine Ketones Negative, Urine Blood Negative, Urine Nitrate Negative, Urine Bilirubin Negative, Urine Urobilinogen 0.2, Ur Leukocyte Esterase Trace, Urine RBC 3-5, Urine WBC 20-50, Ur Squamous Epith Cells 5-10, Urine Bacteria 2+ 02/10/25 21:00 02/10/25 21:00 Orders (Tests/Meds): ED MEDICATIONS Generic Name Dose Route Start Last Admin Trade Name Freq PRN Reason Stop Dose Admin Trimethoprim/Sulfamethoxazole 1 each 02/10/25 23:50 Sulfa/Trimethoprim 1 Tablet PO 02/10/25 23:51 ONCE ONE Discontinued Medications Generic Name Dose Route Start Last Admin Trade Name Freq PRN Reason Stop Dose Admin Lactated Ringer's 1,000 mls @ 999 mls/hr 02/10/25 22:08 02/10/25 23:40 Lactated Ringer's 1000 Ml Bag IV 02/10/25 23:08 Infused .Q1H1M ONE Infusion Iopamidol 70 ml 02/10/25 21:39 02/10/25 21:40 Iopamidol-370 (76%);100ml Bottle IV 02/10/25 21:40 70 ml ONCE ONE Administration Iopamidol 75 ml 02/10/25 22:14 02/10/25 22:15 Iopamidol-370 (76%);100ml Bottle IV 02/10/25 22:15 75 ml ONCE ONE Administration Morphine Sulfate 4 mg 02/10/25 21:03 02/10/25 21:21 Morphine 4mg/Ml Syringe IV 02/10/25 21:04 4 mg ONCE ONE Administration Ondansetron HCl 4 mg 02/10/25 21:03 02/10/25 21:21 Ondansetron 4mg/2ml Vial IV 02/10/25 21:04 4 mg ONCE ONE Administration Sodium Chloride 50 ml 02/10/25 21:39 02/10/25 21:40 0.9 % Sodium Chloride 50 Ml Vial IV 02/10/25 21:40 50 ml ONCE ONE Administration Sodium Chloride 10 ml 02/10/25 21:39 02/10/25 21:40 Sodium Chloride 0.9% 10ml Syr (Rad Only) IV 02/10/25 21:40 10 ml ONCE ONE Administration Sodium Chloride 10 ml 02/10/25 22:14 02/10/25 22:15 Sodium Chloride 0.9% 10ml Syr (Rad Only) IV 02/10/25 22:15 10 ml ONCE ONE Administration ORDERS Category Date Time Status CT abdomen pelvis w con Stat Cat Scan 02/10/25 21:[address] angio chest PE protocol Stat Cat Scan 02/10/25 21:29 Completed CXR --portable [XR chest portable] Stat Exams 02/10/25 20:59 Completed BNP [NT Pro Brain Natriuretic Pep.] Stat Lab 02/10/25 21:00 Completed CBC w/Auto Diff [Complete Blood Count Auto Diff] Stat Lab 02/10/25 21:00 Completed CMP [Comprehensive Metabolic Panel] Stat Lab 02/10/25 21:00 Completed D-Dimer Stat Lab 02/10/25 21:00 Completed Hepatitis C Ab Qual. W/ RFX Stat Lab 02/10/25 21:00 Completed Lipase Stat Lab 02/10/25 21:00 Completed Rapid PCR Covid and Flu A/B Stat Lab 02/10/25 21:07 Completed Trop I [Troponin I] Stat Lab 02/10/25 21:00 Completed UA [Urinalysis and Microscopic] Stat Lab 02/10/25 21:15 Completed UA [Urinalysis and Microscopic] Stat Lab 02/10/25 21:56 Completed Urine Culture Stat Micro 02/10/25 21:15 Received VBG [Venous Blood Gas] Stat RT 02/10/25 21:00 Completed ECG Data Tracing #1: Independently interpreted by me rate is 94, rhythm is regular, axis is normal, no ST elevation in anatomical contiguous leads, QTc 404. Medical Decision Narrative: In summary patient is a 54-year-old female with past medical history of scrota but presents Emergency Department for evaluation of cough, vomiting, abdominal pain. Patient is hemodynamically stable and nontoxic-appearing upon arrival, afebrile. With respect to her cough she is largely clear to auscultation all lung richter, does not have any significant chest pain. Differential includes, pneumonia, atypical ACS, pulmonary embolism, among others workup with respect to this will be conducted with viral swab, chest x-ray, VBG, EKG, troponin, D-dimer. With respect to her abdominal pain hematologic labs will be added on his differential includes gastroenteritis, pancreatitis, diverticulitis, among others. Urinalysis will be obtained to rule out infection and CT abdomen pelvis with IV contrast will be conducted to rule out surgical emergencies. Initial inventions include Zofran, morphine. Initial hematologic labs reviewed by me no significant leukocytosis no transfusable anemia D-dimer moderately elevated will proceed with CT chest VBG is compensated no critical electrolyte abnormality there is minimal hyponatremia initial troponin undetectably low BNP negative. Urinalysis significantly contaminated difficult to interpret will repeat. Viral swab negative. 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 Patient underwent p.o. trial at bedside and was successful. Repeat urinalysis pending at time of transition of care to the oncoming physician, Dr. Jones. <Gómez Jones MD - Last Filed: 02/10/25 23:56> Vital Signs: 02/10/25 21:01 02/10/25 21:04 02/10/25 21:06 Temperature 98.1 F 98.1 F Temperature Source Oral Pulse Rate 90 Pulse Rate [Right] 90 Respiratory Rate 18 16 Blood Pressure 127/74 Blood Pressure [Right Arm] 127/74 Blood Pressure Mean Blood Pressure Mean [Right Arm] 91 02 Sat by Pulse Oximetry 99 99 99 Oxygen Delivery Method Room Air Room Air Room Air 02/10/25 21:30 02/10/25 22:00 02/10/25 22:30 Temperature Temperature Source Pulse Rate 77 82 83 Pulse Rate [Right] Respiratory Rate 12 13 22 Blood Pressure 93/62 L 110/49 L 98/47 L Blood Pressure [Right Arm] Blood Pressure Mean 74 69 69 Blood Pressure Mean [Right Arm] 02 Sat by Pulse Oximetry 95 95 96 Oxygen Delivery Method 02/10/25 22:42 02/10/25 23:34 02/10/25 23:51 Temperature 98.3 F Temperature Source Pulse Rate 81 78 78 Pulse Rate [Right] Respiratory Rate 14 12 11 L Blood Pressure 110/49 L 103/61 L 99/60 L Blood Pressure [Right Arm] Blood Pressure Mean Blood Pressure Mean [Right Arm] 02 Sat by Pulse Oximetry 96 96 Oxygen Delivery Method Room Air Room Air Room Air Lab Data Lab Results 02/10/25 21:00: WBC 10.5, RBC 4.88, Hgb 14.7, Hct 44.2, MCV 90.6, MCH 30.1, MCHC 33.3, RDW 13.5, Plt Count 287, MPV 9.8, Neut % (Auto) 66.3, Lymph % (Auto) 26.4, [place] % (Auto) 5.0, Eos % (Auto) 1.0, Baso % (Auto) 0.6, Neut # (Auto) 7.0, Lymph # (Auto) 2.8, [place] # (Auto) 0.5, Eos # (Auto) 0.1, Baso # (Auto) 0.1, D-Dimer 0.70 H, VBG pH 7.32, VBG pCO2 56.1 H, VBG pO2 32.5, VBG HCO3 28.0, VBG Total CO2 29.7 H, VBG O2 Saturation 68.6, VBG Base Excess 1.8, VBG Lactic Acid 1.4, Sodium 143, Potassium 3.3 L, Chloride 102, Carbon Dioxide 29, Anion Gap 15.3 H, BUN 10, Creatinine 0.80, Estimated Creat Clear 107, Estimated GFR 74, Est GFR ( Amer) 90, Glucose 103 H, Calcium 9.1, Total Bilirubin 0.5, AST 35, ALT 36, Alkaline Phosphatase 61, Troponin I < 0.01, NT-Pro-B Natriuret Pep < 20.0, Total Protein 7.5, Albumin 4.5, Globulin 3.0, Albumin/Globulin Ratio 1.5, Lipase 102, HCV Ab MACHELLE w/Rflx PCR Qn Negative 02/10/25 21:07: SARS-CoV-2 (PCR) Not detected, Influenza A Untype (PCR) Not detected, Influenza Type B (PCR) Not detected 02/10/25 21:15: Urine Color Yellow, Urine Appearance Sl cloudy, Urine pH 6.0, Ur Specific [place] 1.015, Urine Protein Negative, Urine Glucose (UA) Negative, Urine Ketones Negative, Urine Blood Negative, Urine Nitrate Negative, Urine Bilirubin Negative, Urine Urobilinogen 0.2, Ur Leukocyte Esterase 2+ A, Urine RBC 10-20, Urine WBC Tntc, Ur Squamous Epith Cells 20-50, Urine Bacteria 4+ 02/10/25 21:56: Urine Color Yellow, Urine Appearance Sl cloudy, Urine pH 6.5, Ur Specific [place] <= 1.005, Urine Protein Negative, Urine Glucose (UA) Negative, Urine Ketones Negative, Urine Blood Negative, Urine Nitrate Negative, Urine Bilirubin Negative, Urine Urobilinogen 0.2, Ur Leukocyte Esterase Trace, Urine RBC 3-5, Urine WBC 20-50, Ur Squamous Epith Cells 5-10, Urine Bacteria 2+ Orders (Tests/Meds): ED MEDICATIONS Generic Name Dose Route Start Last Admin Trade Name Lizett PRN Reason Stop Dose Admin Trimethoprim/Sulfamethoxazole 1 each 02/10/25 23:50 Sulfa/Trimethoprim 1 Tablet PO 02/10/25 23:51 ONCE ONE Discontinued Medications Generic Name Dose Route Start Last Admin Trade Name Lizett PRN Reason Stop Dose Admin Lactated Ringer's 1,000 mls @ 999 mls/hr 02/10/25 22:08 02/10/25 23:40 Lactated Ringer's 1000 Ml Bag IV 02/10/25 23:08 Infused .Q1H1M ONE Infusion Iopamidol 70 ml 02/10/25 21:39 02/10/25 21:40 Iopamidol-370 (76%);100ml Bottle IV 02/10/25 21:40 70 ml ONCE ONE Administration Iopamidol 75 ml 02/10/25 22:14 02/10/25 22:15 Iopamidol-370 (76%);100ml Bottle IV 02/10/25 22:15 75 ml ONCE ONE Administration Morphine Sulfate 4 mg 02/10/25 21:03 02/10/25 21:21 Morphine 4mg/Ml Syringe IV 02/10/25 21:04 4 mg ONCE ONE Administration Ondansetron HCl 4 mg 02/10/25 21:03 02/10/25 21:21 Ondansetron 4mg/2ml Vial IV 02/10/25 21:04 4 mg ONCE ONE Administration Sodium Chloride 50 ml 02/10/25 21:39 02/10/25 21:40 0.9 % Sodium Chloride 50 Ml Vial IV 02/10/25 21:40 50 ml ONCE ONE Administration Sodium Chloride 10 ml 02/10/25 21:39 02/10/25 21:40 Sodium Chloride 0.9% 10ml Syr (Rad Only) IV 02/10/25 21:40 10 ml ONCE ONE Administration Sodium Chloride 10 ml 02/10/25 22:14 02/10/25 22:15 Sodium Chloride 0.9% 10ml Syr (Rad Only) IV 02/10/25 22:15 10 ml ONCE ONE Administration ORDERS Category Date Time Status CT abdomen pelvis w con Stat Cat Scan 02/10/25 21:[address] angio chest PE protocol Stat Cat Scan 02/10/25 21:29 Completed CXR --portable [XR chest portable] Stat Exams 02/10/25 20:59 Completed BNP [NT Pro Brain Natriuretic Pep.] Stat Lab 02/10/25 21:00 Completed CBC w/Auto Diff [Complete Blood Count Auto Diff] Stat Lab 02/10/25 21:00 Completed CMP [Comprehensive Metabolic Panel] Stat Lab 02/10/25 21:00 Completed D-Dimer Stat Lab 02/10/25 21:00 Completed Hepatitis C Ab Qual. W/ RFX Stat Lab 02/10/25 21:00 Completed Lipase Stat Lab 02/10/25 21:00 Completed Rapid PCR Covid and Flu A/B Stat Lab 02/10/25 21:07 Completed Trop I [Troponin I] Stat Lab 02/10/25 21:00 Completed UA [Urinalysis and Microscopic] Stat Lab 02/10/25 21:15 Completed UA [Urinalysis and Microscopic] Stat Lab 02/10/25 21:56 Completed Urine Culture Stat Micro 02/10/25 21:15 Received VBG [Venous Blood Gas] Stat RT 02/10/25 21:00 Completed Medical Decision Narrative: In summary patient is a 54-year-old female with past medical history of scrota but presents Emergency Department for evaluation of cough, vomiting, abdominal pain. Patient is hemodynamically stable and nontoxic-appearing upon arrival, afebrile. With respect to her cough she is largely clear to auscultation all lung richter, does not have any significant chest pain. Differential includes, pneumonia, atypical ACS, pulmonary embolism, among others workup with respect to this will be conducted with viral swab, chest x-ray, VBG, EKG, troponin, D-dimer. With respect to her abdominal pain hematologic labs will be added on his differential includes gastroenteritis, pancreatitis, diverticulitis, among others. Urinalysis will be obtained to rule out infection and CT abdomen pelvis with IV contrast will be conducted to rule out surgical emergencies. Initial inventions include Zofran, morphine. Initial hematologic labs reviewed by me no significant leukocytosis no transfusable anemia D-dimer moderately elevated will proceed with CT chest VBG is compensated no critical electrolyte abnormality there is minimal hyponatremia initial troponin undetectably low BNP negative. Urinalysis significantly contaminated difficult to interpret will repeat. Viral swab negative. 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 Patient underwent p.o. trial at bedside and was successful. Repeat urinalysis pending at time of transition of care to the oncoming physician, Dr. Jones. Jones: I assumed care of this patient at 2300 hrs. I agree with the assessment and plan from Dr. Mendez. I reviewed labs and do not believe further acute action is indicated although repeat urinalysis is pending. Repeat UA still is consistent with findings of infection, significantly less squamous cells but still 20-50 WBCs and bacteria present. The CT imaging is consistent with UTI as well. Patient does not have proteinuria and has no CVA tenderness. Bactrim administered in the ER for treatment of uncomplicated UTI, Bactrim and Zofran have been prescribed. Results were explained to the patient including incidental findings of lymphadenopathy. She was recommended to follow these up with her PCP. Patient was given instructions on symptomatic management, follow up instructions, and return precautions for the emergency department. Patient indicated understanding and was discharged in stable condition. Critical Care <Sammy Mendez MD - Last Filed: 02/10/25 22:51> Critical Care Time Critical Care Time: No
[2025-02-10 21:07] LABS: Lactate Venous 1.4 mmol/L (0.4-2.0); VBG HCO3 28.0 mmol/L (23-30); VBG PH 7.32 mmol/L (7.31-7.41); VBG PO2 32.5 mmol/L (28-40)
[2025-02-10 21:08] LABS: VBG PCO2 56.1 mmol/L (35-51)
--- NOTE | 2025-02-10 21:09 | PC.NURSE ---
MD Mendez notified of critical VBG results at this time
[2025-02-10 21:10] LABS: Hematocrit 44.2 % (37.0-47.0); Hemoglobin 14.7 g/dL (12.2-16.2); Immature Granulocytes % 0.7 %; Mean Corpuscular HGB Conc 33.3 g/dL (31.8-35.4); Mean Corpuscular Hemoglobin 30.1 pg (27.0-31.2); Mean Corpuscular Volume 90.6 fl (81-99); Nucleated Red Blood Cells % 0 %; Platelet Count 287 K/mm3 (142-424); Red Blood Count 4.88 M/mm3 (4.20-5.40); Red Cell Distribution Width-SD 44.5 fL; White Blood Count 10.5 K/mm3 (4.8-10.8)
[2025-02-10 21:13] LABS: Coronavirus 19, PCR Not Detected (NotDetected); Influenza A, PCR Not Detected (NotDetected); Influenza B, PCR Not Detected (NotDetected)
[2025-02-10 21:16] LABS: Albumin Level 4.5 g/dl (3.5-5.0); Chloride 102 mmol/L (98-107); Sodium 143 mmol/L (136-145)
[2025-02-10 21:17] LABS: Potassium 3.3 mmoL/L (3.5-5.1)
[2025-02-10 21:19] LABS: Alanine Aminotransferase 36 U/L (12-78); Albumin/Globulin Ratio 1.5 (1.1-1.8); Alkaline Phosphatase 61 U/L (38-126); Anion Gap 15.3 mEq/L (5-15); Aspartate Amino Transferase 35 U/L (14-36); Bilirubin,Total 0.5 mg/dl (0.2-1.3); Blood Urea Nitrogen 10 mg/dl (7-17); Carbon Dioxide 29 mmol/L (22.0-30.0); Creatinine Clearance Estimated 107 mL/min (50-200); Creatinine,Serum 0.80 mg/dl (0.52-1.04); Estimated Glomerular Filt Rate 74 ml/min (>60); GFR (African American) 90 ML/MIN (>60); Globulin 3.0 g/dL (1.3-3.2); Total Protein,Serum 7.5 g/dl (6.3-8.2)
[2025-02-10 21:19] LABS: Microscopic, Urine URINE MICROSCOPIC (MICROSCOPIC)
[2025-02-10 21:20] LABS: Calcium 9.1 mg/dl (8.4-10.2); Glucose 103 mg/dl (74-100)
[2025-02-10] MEDS: MORPHINE 4MG/ML SYRINGE 4 MG IV (21:21)
[2025-02-10] MEDS: ONDANSETRON 4MG/2ML VIAL 4 MG IV (21:21)
[2025-02-10 21:23] LABS: Bilirubin,Urine Negative (Negative); Color,Urine YELLOW (Yellow); Glucose,Urine (UA) Negative (Negative); Ketones,Urine Negative (Negative); Leukocyte Esterase,Urine 2+ (Negative); PH,Urine 6.0 (5.0-8.5); Protein,Urine Negative (Negative); Specific Gravity, Urine 1.015 (1.005-1.030); Urobilinogen,Urine 0.2 EU/dl (0.2)
[2025-02-10 21:25] LABS: D-Dimer 0.70 ug/mL (0.0-0.5)
[2025-02-10 21:29] LABS: NT Pro Brain Natriuretic Pep. < 20.0 pg/mL (0-125)
--- NOTE | 2025-02-10 21:29 | CT_ITS ---
PROCEDURE INFORMATION: Exam: CTA Chest With Contrast Exam date and time: 02/10/2025 9:36 PM Age: 54 years old Clinical indication: Cough; Additional info: Cough, SOB TECHNIQUE: Imaging protocol: Computed tomographic angiography of the chest with contrast. Exam focused on the arteries. 3D rendering (Not supervised by radiologist): MIP and/or 3D reconstructed images were created by the technologist. Total images: 909 Radiation optimization: All CT scans at this facility use at least one of these dose optimization techniques: automated exposure control; mA and/or kV adjustment per patient size (includes targeted exams where dose is matched to clinical indication); or iterative reconstruction. Contrast material: ISO 370; Contrast volume: 70 ml; Contrast route: INTRAVENOUS (IV); COMPARISON: CR XR CHEST PORTABLE 02/10/2025 9:17 PM FINDINGS: Pulmonary arteries: Adequate contrast opacification of the pulmonary arteries. The main pulmonary artery is normal in caliber. No acute pulmonary emboli. Aorta: Mildly atherosclerotic thoracic aorta without aneurysm or dissection. Thyroid: Mildly heterogeneous nonenlarged thyroid gland. Lungs: The trachea and main bronchi are patent. The lungs are clear and well expanded. No pulmonary mass or airspace consolidation. Pleural spaces: Unremarkable. No pneumothorax. No pleural effusion. Heart: Normal heart size. No pericardial effusion. Lymph nodes: Borderline enlarged mediastinal lymph nodes up to 9 mm in short axis. No hilar lymphadenopathy. Partially calcified subcarinal and left hilar lymph nodes. Gallbladder and biliary ducts: Status post cholecystectomy. Adrenal glands: 2.5 cm oval macrolobulated low-attenuation left adrenal nodule/adenoma. Intestine: Duodenal diverticulum. Intraperitoneal space: No acute process in the upper abdomen. Bones/joints: Mild degenerative changes of the thoracic spine. S-shaped thoracic scoliosis. Soft tissues: Unremarkable. IMPRESSION: 1. No acute intrathoracic process. Specifically, no acute pulmonary emboli. 2. Borderline enlarged mediastinal lymph nodes. 3. Clear lungs. 4. Left adrenal adenoma. 5. Additional chronic/incidental findings.
[2025-02-10 21:33] LABS: Troponin I < 0.01 ng/ml (0.00-0.034)
[2025-02-10] MEDS: SODIUM CHLORIDE 0.9% 10ML SYR (RAD ONLY) 10 ML IV ×2 (21:40→22:15)
[2025-02-10] MEDS: 0.9 % SODIUM CHLORIDE 50 ML VIAL IV (21:40)
[2025-02-10] MEDS: IOPAMIDOL-370 (76%);100ML BOTTLE 70 ML IV (21:40)
[2025-02-10 21:44] LABS: Lipase 102 U/L (23-300)
[2025-02-10 21:48] LABS: Bacteria,Urine 4+ /lpf; Squamous Epithelial Cell,Urine 20-50 #/hpf (0-5); WBC,Urine TNTC #/hpf (0-3)
--- NOTE | 2025-02-10 21:58 | CT_ITS ---
PROCEDURE INFORMATION: Exam: CT Abdomen And Pelvis With Contrast Exam date and time: 02/10/2025 10:10 PM Age: 54 years old Clinical indication: Abdominal pain; Additional info: Periumbilical L hemiabdominal pain TECHNIQUE: Imaging protocol: Computed tomography of the abdomen and pelvis with contrast. Total images: 338 Radiation optimization: All CT scans at this facility use at least one of these dose optimization techniques: automated exposure control; mA and/or kV adjustment per patient size (includes targeted exams where dose is matched to clinical indication); or iterative reconstruction. Contrast material: ISOVUE; Contrast volume: 75 ml; Contrast route: IV; COMPARISON: CT ABDOMEN PELVIS W CON 05/17/2020 1:18 AM FINDINGS: Lungs: Fine linear left basilar scarring. Heart: Normal heart size. Liver: Nonenlarged liver with mild steatosis. No mass. Gallbladder and biliary ducts: Status post cholecystectomy. Mild biliary ductal ectasia in keeping with post cholecystectomy status. Pancreas: Normal. No ductal dilation. Spleen: Calcified splenic granuloma. No splenomegaly. Adrenal glands: 15 mm stable left adrenal nodule/adenoma. Retrospectively unchanged. Kidneys and ureters: Symmetric renal contrast excretion would obscure renal calculi if present. Small bilateral renal cysts. No perinephric fluid. Stomach and bowel: Unremarkable stomach. Small duodenal diverticulum. No ileus or bowel obstruction. Unremarkable small bowel. Developmental intestinal malrotation without volvulus with the small bowel in the right and the colon on the left. Unremarkable colon and rectum. Appendix: No evidence for appendicitis. Intraperitoneal space: Unremarkable. No free air. No significant fluid collection. Vasculature: Mild atherosclerotic vascular disease. Nonaneurysmal abdominal aorta. Major abdominal vessels enhance appropriately. Lymph nodes: Small benign-appearing bilateral inguinal lymph nodes. Urinary bladder: Nonspecific bladder wall thickening. Contrast filling the bladder lumen. Reproductive: Status post hysterectomy. No adnexal mass. Bones/joints: Scattered mild degenerative changes of the thoracolumbar spine. No acute osseous abnormality. Soft tissues: Tiny fat containing umbilical hernia. IMPRESSION: 1. No acute intra-abdominal or pelvic process. 2. Nonspecific mild bladder wall thickening. Correlate for cystitis. 3. Developmental intestinal malrotation without volvulus. 4. Additional chronic/incidental findings. COMMENTS: Consistent with the [employer]'s Incidental Findings Committee white paper (J Am Kleber Radiol 2018): Any incidental renal lesion less than 1 cm or classified as too small to characterize, or any incidental cystic renal lesion characterized as simple-appearing, is likely benign. No follow-up imaging is recommended for these lesions per consensus recommendations based on imaging criteria.
[2025-02-10] MEDS: IOPAMIDOL-370 (76%);100ML BOTTLE 75 ML IV (22:15)
[2025-02-10] MEDS: LACTATED RINGERS 1000ML 1,000 ML 999 ML IV (22:39)
[2025-02-10 22:44] LABS: Hepatitis C Ab Qual. W/ RFX NEGATIVE (Negative)
--- NOTE | 2025-02-10 23:32 | PC.NURSE ---
Called lab r/t 2nd Urine sent. Lab running
[2025-02-10 23:33] LABS: Microscopic, Urine URINE MICROSCOPIC (MICROSCOPIC)
[2025-02-10 23:34] LABS: Bilirubin,Urine Negative (Negative); Color,Urine YELLOW (Yellow); Glucose,Urine (UA) Negative (Negative); Ketones,Urine Negative (Negative); Leukocyte Esterase,Urine TRACE (Negative); PH,Urine 6.5 (5.0-8.5); Protein,Urine Negative (Negative); Specific Gravity, Urine <= 1.005 (1.005-1.030); Urobilinogen,Urine 0.2 EU/dl (0.2)
[2025-02-10 23:48] LABS: WBC,Urine 20-50 #/hpf (0-3)
[2025-02-10 23:49] LABS: Bacteria,Urine 2+ /lpf
[2025-02-10] MEDS: SULFA/TRIMETHOPRIM 1 TABLET 1 EACH PO (23:58)
== END 2025-02-11 00:09 | disposition home or self-care (01) ==
PROVIDERS: Emergency Provider Emergency Medicine; PCP Internal Medicine
DX: R10.33 Periumbilical pain (principal); R10.32 Left lower quadrant pain; N39.0 Urinary tract infection, site not specified; R06.02 Shortness of breath; R11.2 Nausea with vomiting, unspecified; D35.02 Benign neoplasm of left adrenal gland; R59.0 Localized enlarged lymph nodes; Z87.891 Personal history of nicotine dependence
CPT/HCPCS: 71045; 71275; 74177; 80053; 81001; 82803; 83690; 83880; 84484; 85025; 85378; 86803; 87086; 87636; 93005; 96361; 96374; 96375; 99285; J2270; J2405; J7120; Q9967

== ENCOUNTER 2025-03-15 19:38 | Emergency (ER) | payer MEDICARE, MEDICAID, SELFPAY ==
[2025-03-15 19:40] VITALS: BP 165/76; PULSE 88; RESP 16; TEMP 36.4; O2SAT 96; BMI 31.6
--- OUTSIDE RECORDS SUMMARY | 2025-03-15 19:44 | XMS_ITS | Clinical Summary ---
Author Organization [facility] Address [address] [place] [id number] Care Team Providers Care Fish Conservationist Name Role Phone Alton Coello MD Primary Care Provider [phone] Allergies No known active allergies Medications hydrOXYzine pamoate (VISTARIL) 25 MG capsule Take 1 capsule by mouth 3 (Three) Times a Day As Needed. 06/23/19 23 Active traZODone (DESYREL) 150 MG tablet Take 1 tablet by mouth every night at bedtime. 02/18/20 24 Active sertraline (ZOLOFT) 100 MG tablet Take 1.5 tablets by mouth Daily. Active phentermine 15 MG capsuleIndications :Encounter for general adult medical examination with abnormal findings,Moderate obesity Take 1 capsule by mouth Every Morning. 30 capsule 04/11/19 25 Active triamcinolone (KENALOG) 0.1 % creamIndications:R oneal Apply 1 Application topically to the appropriate area as directed 2 (Two) Times a Day. 60 g 1 04/11/19 25 Active Calcium Carbonate-Vit D-Min (Calcium 600+D Plus Minerals) 600-400 MG-UNIT tabletIndications: Osteopenia of multiple sites Take 1 tablet by mouth 2 (Two) Times a Day. 180 each 3 04/11/19 25 Active Cholecalciferol (Vitamin D) 50 MCG (1999) tabletIndications: Vitamin D deficiency Take 1 tablet by mouth Daily. 90 tablet 3 04/14/19 25 Active atorvastatin (LIPITOR) 10 MG tabletIndications: Mixed hyperlipidemia Take 1 tablet by mouth Every Night. 90 tablet 3 04/14/19 25 Active pantoprazole (PROTONIX) 40 MG EC tabletIndications: Encounter for general adult medical examination with abnormal findings,Gastroeso phageal reflux disease, unspecified whether esophagitis present Take 1 tablet by mouth once daily 30 tablet 1 10/28/19 25 Active Active Problems Problem Noted Date Diagnosed Date Preop examination 04/11/2024 Assessment & Plan (04/11/2024 2:38 PM EST): Preop evaluation for upcoming colonoscopy under conscious sedation. EKG today unremarkable, update screening labs, no concerning history or physical findings, no concerning family history of prior anesthetic reactions. Orders: CBC & Differential; Future Comprehensive Metabolic Panel; Future ECG 12 Lead Comprehensive Metabolic Panel CBC & Differential Encounter for general adult medical examination with abnormal findings 04/11/2024 Assessment & Plan (04/11/2024 2:38 PM EST): 53-year-old female presenting for complete physical and Medicare wellness visit, health issues being addressed as detailed below, health maintenance includes notification for Pap smear given prior hysterectomy for benign disease, update low-dose screening chest CT, mammogram, and colonoscopy, last colonoscopy in 12/2022 revealing suboptimal bowel prep with a 1 year follow-up recommended, influenza vaccine yesterday, Tdap declined given lack of Medicare coverage, declines COVID-19 vaccine, update [facility], EKG today normal, update screening labs. Follow-up in 1 month to reassess response regarding phentermine treatment of her obesity Orders: phentermine 15 MG capsule; Take 1 capsule by mouth Every Morning. pantoprazole (Protonix) 40 MG EC tablet; Take 1 tablet by mouth Daily. Ambulatory Referral For Screening Colonoscopy TSH Rfx On Abnormal To Free T4; Future CBC & Differential; Future Comprehensive Metabolic Panel; Future Lipid Panel; Future Hemoglobin A1c; Future Vitamin D,25-Hydroxy; Future Urinalysis With Culture If Indicated -; Future Urinalysis With Culture If Indicated - Urine, Clean Catch Vitamin D,25-Hydroxy Hemoglobin A1c Lipid Panel Comprehensive Metabolic Panel CBC & Differential TSH Rfx On Abnormal To Free T4 Medicare annual wellness visit, subsequent 04/11 Assessment & Plan (04/11/2024 2:38 PM EST): Gastroesophageal reflux disease 04/11/2024 Assessment & Plan (04/11/2024 2:38 PM EST): Having postprandial dyspepsia. Initiate pantoprazole on a trial basis. Avoid GI irritants including caffeine, greasy fried foods, NSAIDs, and recommend strongly need to stop smoking. Orders: pantoprazole (Protonix) 40 MG EC tablet; Take 1 tablet by mouth Daily. Screen for colon cancer 04/11/2024 Assessment & Plan (04/11/2024 2:38 PM EST): Most recent colonoscopy from 01/03/2023 revealing suboptimal bowel prep with history of polyps. Recommended follow-up study in 1 year. Refer back for repeat colonoscopy screening. Orders: Ambulatory Referral For Screening Colonoscopy Dysuria 04/11/2024 Assessment & Plan (04/11/2024 2:38 PM EST): Minimal occasional dysuria. No other related symptoms. Check UA. Orders: Urinalysis With Culture If Indicated -; Future Urinalysis With Culture If Indicated - Urine, Clean Catch Rash 04/11/2024 Assessment & Plan (04/11/2024 2:38 PM EST): Nonspecific pruritic erythematous rash on the left lateral abdomen. Treat with triamcinolone cream advised if not resolving. Orders: triamcinolone (KENALOG) 0.1 % cream; Apply 1 Application topically to the appropriate area as directed 2 (Two) Times a Day. Screening for thyroid disorder 04/11/2024 Assessment & Plan (04/11/2024 2:38 PM EST): Orders: TSH Rfx On Abnormal To Free T4; Future TSH Rfx On Abnormal To Free T4 Screening for diabetes mellitus 04/11/2024 Assessment & Plan (04/11/2024 2:38 PM EST): Orders: Hemoglobin A1c; Future Hemoglobin A1c Screening for lung cancer 04/11/2024 Assessment & Plan (04/11/2024 2:38 PM EST): Approximate [id number] history of cigarette smoking ongoing. Has reduced from her standard 2 packs/day down to 0.5 packs/day in the last couple years. Discussed benefits of low-dose screening chest CT screening to detect lung cancer to potentially curable stage, with patient agreeable and will pursue updated low- dose screening chest CT. Strongly advised of need to stop smoking. Orders: CT Chest Low Dose Wo; Future Encounter for screening mamm ogram for malignant neoplasm of breast 04/11/2024 Assessment & Plan (04/11/2024 2:38 PM EST): Orders: Mammo Screening Digital Tomosynthesis Bilateral With CAD; Future Immunization declined 04/11/2024 Assessment & Plan (04/11/2024 2:38 PM EST): Declines recommended COVID-19 vaccine, Tdap declined given lack of Medicare coverage, encouraged to update Shing[facility] vaccine, influenza vaccine given today. Bipolar disorder, in full re mission, most recent episode depressed 09/12/2022 Assessment & Plan (04/11/2024 2:38 PM EST): Followed regularly by psychiatry, recently started on sertraline 100 mg at 1.5 tablets or 150 mg daily, using trazodone 50 mg nightly for insomnia and hydroxyzine as needed. Clinically stable. Umbilical hernia without obstruction and without gangrene 09/12/2022 Menopause 09/12/2022 Dyspnea on exertion 09/12/2022 Hyperglycemia 09/12/2022 History of migraine headaches 07/03/2022 Assessment & Plan (04/11/2024 2:38 PM EST): Relates only an occasional headache. Not on any targeted medication. Mild intellectual disabilities 03/15/2022 Overview (03/15/2022): Mild mental retardation Assessment & Plan (04/11/2024 2:38 PM EST): Chronic mild intellectual disability, baseline. Still functions quite well Mixed hyperlipidemia 03/15/2022 Assessment & Plan (04/11/2024 2:38 PM EST): Currently not on any cholesterol-lowering medication. Update lipid profile. Orders: Lipid Panel; Future Lipid Panel Moderate obesity 03/15/2022 Assessment & Plan (04/11/2024 2:38 PM EST): 16 pound weight gain over the last 1.5 years, partially attributed to previous prescription of Vraylar. She admittedly has a very poor lifestyle consuming at least 80 ounces of regular soda and being very sedentary. Discussed need to make all sugar and calorie liquid intake, increase her fruit and vegetable intake, continue avoiding junk foods and fast foods and increase her exercise. Discussed medication options to assist with weight loss, pursuit of phentermine 15 mg daily given potential GI side effect of GLP-1 agonist with simultaneous questionable coverage. Follow-up in 1 month to assess response to phentermine. Orders: phentermine 15 MG capsule; Take 1 capsule by mouth Every Morning. Bipolar disorder current episode depressed 03/15 Other migraine, not intractable, without status migrainosus 03/15/2022 Osteopenia 03/15/2022 Overview (03/15/2022): bilateral femoral neck Assessment & Plan (04/11/2024 2:38 PM EST): DEXA scan from 08/2022 revealing multifocal osteopenia. Add calcium 600 mg plus D twice daily, plan to repeat another DEXA scan in 1 year. Orders: Calcium Carbonate-Vit D-Min (Calcium 600+D Plus Minerals) 600-400 MG-UNIT tablet; Take 1 tablet by mouth 2 (Two) Times a Day. Cigarette smoker 03/15/2022 Assessment & Plan (04/11/2024 2:38 PM EST): Chronically 2 pack/day cigarette smoker x 39 years, though has reduced in the last couple years down to 0.5 packs/day. Strongly vies need to stop smoking for health risk reduction. Obtain updated for yearly low-dose screening chest CT. Orders: CT Chest Low Dose Wo; Future Vitamin D deficiency 03/15/2022 Assessment & Plan (04/11/2024 2:38 PM EST): Currently not on any supplement. Update level Orders: Vitamin D,25-Hydroxy; Future Vitamin D,25-Hydroxy History of colon polyps 03/15/2022 Resolved Problems Problem Noted Date Diagnosed Date Resolved Date Obesity (BMI 30.0-34.9) 09/12/202203/26 Immunizations Immunization Administration Dates Next Due Fluzone >6mos 04/11/2024 Influenza Seasonal Injectable 01/20/2021 Influenza, Unspecified 01/20/2021 Pneumococcal Conjugate 20-Valent (PCV20) 023 Family History Medical History Relation Name Comments Throat cancer Brother 1 Lung disease Brother 2 ADD / ADHD Child 1 ADD / ADHD Child 2 Lung cancer Father Cancer Maternal Grandmother Hypertension Mother Kidney failure Mother Stroke Mother Colon cancer Other uncle Other Son having signific ant head trauma post Motor Vehicle Accident with some ongoing disabilities Relation Name Status Comments Brother 1 Brother 2 Child 1 Child 2 Father (Age 66) Maternal Grandmother Mother (Age 55) Other uncle Son Social History Tobacco Use Types Packs/Day Years Used Date Smoking Tobacco: Every Day Cigarettes 0.5 16 Smokeless Tobacco: Never Tobacco Cessation:Ready to Q uit: Not Asked; Counseling Given: Not Answered Alcohol Use Standard Drinks/Week Comments Never 0 (1 standard drink = 0.6 oz pur e alcohol) PHQ-2 Answer Date Recorded Retired PHQ-9: Brief Depression Severity Measure Score 0 09/12/2022 PHQ-2 Answer Date Recorded Patient Health Questionnaire-9 Score 0 04/11/2024 Comments Unknown Sex and Gender Information Value Date Recorded Sex Assigned at Not on file Legal Sex Female 12:29 PM EDT Gender Identity Not on file Sexual Orientation Not on file Last Filed Vital Signs Vital Sign Reading Time Taken Comments Blood Pressure 122/80 04/11/2024 1:19 PM EST Pulse 107 04/11/2024 1:19 PM EST Temperature 36.6 C (97.8 F) 04/11/2024 1:19 PM EST Respiratory Rate 18 04/11/2024 1:19 PM EST Oxygen Saturation 97% 04/11/2024 1:19 PM EST Inhaled Oxygen Concentration - - Weight 90.8 kg (200 lb 3.2 oz) 04/11/2024 1:19 P M EST Height 157.5 cm (5' 2 ) 04/11/2024 1:19 PM EST Body Mass Index 36.62 04/11/2024 1:19 PM EST Plan of Treatment Health Maintenance Due Date Last Done Comments TDAP/TD VACCINES (1 - Tdap) 11/22/1987 COLOGUARD 2013 COLON CANCER SCREENING 5 YEA R SIGMOID[address]COPY [address] COLONOGRAPHY 2013 FECAL OCCULT BLOOD TEST 2013 FIT Testing (1 year) 2013 ZOSTER VACCINE (1 of 2) 2018 INFLUENZA VACCINE 10/24/2024 04/11/2024, , 01/20/2021 ANNUAL WELLNESS VISIT 04/11/2025 04/11/2024 , 04/11/2024, 09/12/2022, Additional history exists LIPID PANEL 04/11/2025 04/11/2024, 08/25, 04/06/2021 COLONOSCOPY 06/18/2025 06/18/2024, 05/25, 01/03/2023, Additional history exists COLORECTAL CANCER SCREENING 06/18/2025 MAMMOGRAM 04/22/2026 04/22/2024, 08/25, 04/06/2021 HEPATITIS C SCREENING Completed 09/12/2022 Pneumococcal Vaccine 50+ Completed 09/12/2022 Annual Gynecologic Pelvic an d Breast Exam Discontinued Procedures Procedure Name Priority Date/Time Associated Diagnosis Comments SCANNED - COLONOSCOPY 06/18/2024 MAMMO SCREENING DIGITAL TOMOSYNTHESIS BILATERAL W CAD Routine 04/22/2024 Encounter for screening mammogram for malignant neoplasm of breast LIPID PANEL Routine 04/11/2024 2:29 PM EST Encounter for general adult medical examination with abnormal findings Mixed hyperlipidemia HEPATITIS C ANTIBODY Routine 09/12/2022 10:16 AM EDT Encounter for general adult medical examination with abnormal findings Need for hepatitis C screening test from Last 3 Months or Most Recently Relevant to Health Maintenance Results * Colonoscopy, Scan (06/18/2024) Alton Coello MD CHART REVIEW TABS Final Res ult * Mammo Screening Digital Tomosynthesis Bilateral With CAD (04/22/2024) Anatomical Region Laterality Modality Breast N/A Mammography us Alton Coello MD IMG MAMMOGRAPHY ORDERABLES Fin al Result * (ABNORMAL) Lipid Panel (04/11/2024 2:29 PM EST) Total Cholesterol 209(H) 100 - 199 mg/dL [facility] Triglycerides 130 0 - 149 mg/dL [facility] HDL Cholesterol 35(L) >39 mg/dL [facility] VLDL Cholesterol Mac 24 5 - 40 mg/dL [facility] LDL Chol Calc (NIH) 150(H) 0 - 99 mg/dL [facility] Blood Structure of left upper limb / Unknown 04/11/2024 2:29 PM EST 04/11/2024 Comment:Blood Release to [facility] (AMBULATORY) - 04/13/2024 6:36 AM EST Performed at: [address] [place] [id number] Conference And Event Organiser: Donell Alfred PhD, Phone: [phone] us Alton Coello MD LAB BLOOD ORDERABLES Final Res ult [facility] (AMBULATORY) [address] [place] [id number], [facility] [address] [place] [id number], * Hepatitis C Antibody (09/12/2022 10:16 AM EDT) Pathologist [facility] Hep C Virus Ab Non Reactive Non Reactive [facility] Comment: HCV antibody alone does not differentiate between previously resolved infection and active infection. Equivocal and Reactive HCV antibody results should be followed up with an HCV RNA test to support the diagnosis of active HCV infection. Blood Structure of left upper limb / Unknown 09/12/2022 10:16 AM EDT 09/13/2022 Comment:Blood Release to [facility] (AMBULATORY) - 09/13/2022 9:07 AM EDT Performed at: [address] [id number] Conference And Event Organiser: Donell Alfred PhD, Phone: [phone] us Alton Coello MD LAB BLOOD ORDERABLES Final Res ult [facility] (AMBULATORY) [address] [place] [address], [place] [phone] [facility] [address] [place] [address], [place] [phone] from Last 3 Months or Most Recently Relevant to Health Maintenance Insurance [employer] MED[employer]ARE [employer]VANTAGE PPO Care Teams Fish Conservationist Relationship Specialty Start Date End Date Alton Coello MD [address] [id number] PCP - General Internal Medicine 03/16/22
[2025-03-15 20:09] LABS: Strep Scrn Group A (Rapid) Negative (Negative)
--- NOTE | 2025-03-15 20:16 | ED_ITS ---
Discharge Plan Disposition Patient Disposition: Home, Self-Care Condition: Good Prescriptions Prescriptions: No Action albuterol sulfate 200 PUFFS HFA aerosol inhaler 1 - 2 puffs IH Q6HP PRN (Reason: Shortness Of Breath) Qty: 1 0RF amoxicillin-pot clavulanate 875-125 mg tablet 1 tab PO BID Qty: 20 0RF ciprofloxacin-dexamethasone 0.3-0.1 % drops,suspension 4 drp otic (ear) BID 7 Days Qty: 7.5 0RF fluticasone propionate [Flonase Allergy Relief] 50 mcg/actuation spray,suspension 1 spray intranasal BID Qty: 16 0RF Rx Instructions: administer into each nostril sulfamethoxazole-trimethoprim [Bactrim DS] 800-160 mg tablet 1 tab PO BID 7 Days Qty: 14 0RF ondansetron 4 mg tablet,disintegrating 4 mg PO Q8H PRN (Reason: nausea and vomiting) 4 Days Qty: 12 0RF naproxen 500 MG tablet 500 mg PO BID 10 Days Qty: 20 0RF minocycline 100 MG tablet 100 mg PO BID Qty: 20 0RF ondansetron 4 MG tablet,disintegrating 4 mg PO TIDP PRN (Reason: Nausea And Vomiting) Qty: 21 0RF Referrals Follow up/Referrals: Alton Coello [Primary Care Provider, Medical] - See instructions Activity Restrictions/Add. Instructions Additional Instructions/Restrictions: You were seen for viral pharyngitis. Please return here if you have increased pain, change in voice or inability to swallow. See your PCP this week. Clinical Impressions Clinical Impression: Pharyngitis Instructions Patient Instructions: Viral Pharyngitis Print Language Print Language: Thai Discharge ED Provider: Quita Narayanan General Adult HPI <Quita Narayanan MD - Last Filed: 03/15/25 20:30> General Chief complaint: Sore Throat Stated complaint: Sore throat,right earache Time Seen by Provider: 03/15/25 19:42 Related Data Previous Rx's ?Medication ?Instructions ?Recorded naproxen 500 mg tablet 500 mg PO BID 10 days #20 ta bs 04/04/19 albuterol sulfate 90 mcg/actuation 1 - 2 puffs IH Q6HP PRN Shortness 12/09/20 aerosol inhaler Of Breath #1 ea minocycline 100 mg tablet 100 mg PO BID #20 tabs 07/16 /22 ondansetron 4 mg disintegrating 4 mg PO TIDP PRN Nause a And 10/08/21 tablet Vomiting #21 tabs amoxicillin 875 mg-potassium 1 tab PO BID #20 tabs clavulanate 125 mg tablet ciprofloxacin 0.3 %-dexamethasone 4 drp otic (ear) BID 7 days #7.5 mL 10/10/23 0.1 % ear drops,suspension fluticasone propionate 50 1 spray intranasal BID #16 g tila 10/10/23 mcg/actuation nasal spray,suspension (Flonase Allergy Relief) ondansetron 4 mg disintegrating 4 mg PO Q8H PRN nausea and 02/10/25 tablet vomiting 4 days #12 tabs sulfamethoxazole 800 1 tab PO BID 7 days #14 tabs 02/10/25 mg-trimethoprim 160 mg tablet (Bactrim DS) Allergies Allergy/AdvReac Type Severity Reaction Status Date / Time No Known Allergies Allergy Verified 05/17/20 00:44 <BRENDA Pete - Last Filed: 03/15/25 20:23> General Mode of Arrival: Ambulatory Source of Information: Patient Description of Symptoms (Recalled from ER Triage Doc. by RN): Patient reports sore throat, right ear pain and a productive cought that started on Sunday. She reports taking tylenol at 12pm today without any improvement. She denies any fever. History of Present Illness HPI narrative: Patient presents complaining of sore throat on the right side. Symptoms started on Sunday. She has also had a cough and some ear pain. Denies any fevers. She does have a contact with respiratory symptoms as well. complaint: Sore throat Onset (ago): day(s) Location: mouth Radiation: other (Ear) Severity: moderate Consistency: constant Relieving factors: none Exacerbating factors: none Associated symptoms: denies other symptoms Treatments prior to arrival: other (Tylenol) COUNT INCLUDES THE [facility] <Quita Narayanan MD - Last Filed: 03/15/25 20:30> COUNT INCLUDES THE [facility] Social History Smoking Status: Current every day smoker tobacco type: cigarettes packs per day: 1 alcohol intake: never current occupational status: disabled Travel in the last 8 weeks?: None household members: spouse and children housing: house Have you lived/traveled outside [place] in past 30 days?: No Contact w/someone who lives/traveled outside [place] past 30 days?: No Exposure to someone with infectious disease in past 14 days?: No Do you have a fever (greater than 100.4 F or 38 C)?: No Have you tested positive for COVID-19?: No Exposed to someone with COVID-19 in past 14 days?: No Do you have a sore throat?: No Do you have a cough?: No Do you have any weakness?: No Do you have any diarrhea?: No Are you experiencing any unusual bleeding?: No Do you have any muscle aches/pain?: No Do you have any abdominal pain?: No Are you experiencing loss of taste or smell?: No <BRENDA Pete - Last Filed: 03/15/25 20:23> COUNT INCLUDES THE [facility] Disclaimer: The information contained in this section may have been updated after the patient was seen, as this information can be updated by other users. Other Medical History Have you received the Flu Vaccine for this season: Yes Have you received the Pneumonia Vaccine: No <BRENDA Pete - Last Filed: 03/15/25 20:23> ROS Obtained: Yes Systems reviewed as appropriate & no additional complaints except as documented Physical Exam <BRENDA Pete - Last Filed: 03/15/25 20:23> General General appearance: alert and in no apparent distress Head Head exam: atraumatic and normocephalic Eye Eye exam: Present normal appearance and EOMI ENT ENT exam: Present TM's normal bilaterally, normal external ear exam and other (Large ulceration to the right posterior pharynx, pharyngeal erythema. No evidence of DATA ARCHITECT) Chest Chest inspection: Present symmetric chest wall rise Respiratory Respiratory exam: Present normal lung sounds bilaterally; Absent wheezes or stridor Cardiovascular Cardiovascular exam: Present regular rate and normal rhythm; Absent systolic murmur Extremities Exam Extremities exam: Present full ROM Neurological Exam Neurological exam: Present alert and oriented X3 Psychiatric Psychiatric exam: Present normal affect and normal mood Skin Skin exam: Present warm, dry and intact Medical Decision Making <Quita Narayanan MD - Last Filed: 03/15/25 20:30> Vital Signs: 03/15/25 19:40 Temperature 97.6 F Temperature Source Oral Pulse Rate [Right Radial] 88 Respiratory Rate 16 Blood Pressure [Right Arm] 165/76 H Blood Pressure Mean [Right Arm] 105 Blood Pressure Source [Right Arm] Automatic Cuff 02 Sat by Pulse Oximetry 96 Oxygen Delivery Method Room Air Lab Data Lab Results 03/15/25 19:52: Group A Strep Rapid Negative Orders (Tests/Meds): ED MEDICATIONS Discontinued Medications Generic Name Dose Route Start Last Admin Trade Name Freq PRN Reason Stop Dose Admin Dexamethasone Sodium Phosphate 10 mg 03/15/25 20:15 03/15/25 20:26 Dexamethasone 4mg/Ml 5ml Mdv PO 03/15/25 20:16 10 mg ONCE ONE Administration ORDERS Category Date Time Status Strep Scrn Group A (Rapid) Stat Lab 03/15/25 19:52 Completed Strep Screen Confirmation Stat Micro 03/15/25 19:52 Received Medical Decision Narrative: In summary patient is a 54-year-old female who presents the emergency department for evaluation of sore throat, ear pain. Patient is hemodynamically stable upon arrival, afebrile. Ulceration to posterior pharynx. Differential diagnosis includes strep, viral pharyngitis, otitis media. Initial workup will be conduc parul with strep swab. Initial inventions include Decadron for pain. Initial workup reviewed by me negative for strep Upon repeat evaluation patient is resting comfortable. Given this patient is appropriate for discharge home at this time with instructions for viral pharyngitis. Given return precautions and follow-up information.. I was consulted by the LISSETH, and we discussed the complexity of problems being addressed. I approved the treatment and management plan for this patient's care in the emergency department, thus performing a substantial portion of the medical decision making. Quita Narayanan MD <BRENDA Pete - Last Filed: 03/15/25 20:23> Medical Records Screening: Per USPSTF and CDC recommendations, given the prevalence of disease in our region, it is our hospital?s policy to screen for HIV and viral Hepatitis for all patients aged 18 and over and those with ongoing risk factors. Julio Inquiry Pt receiving controlled substance: No Vital Signs: 03/15/25 19:40 Temperature 97.6 F Temperature Source Oral Pulse Rate [Right Radial] 88 Respiratory Rate 16 Blood Pressure [Right Arm] 165/76 H Blood Pressure Mean [Right Arm] 105 Blood Pressure Source [Right Arm] Automatic Cuff 02 Sat by Pulse Oximetry 96 Oxygen Delivery Method Room Air Lab Data Lab Results 03/15/25 19:52: Group A Strep Rapid Negative Orders (Tests/Meds): ED MEDICATIONS Discontinued Medications Generic Name Dose Route Start Last Admin Trade Name Lizett PRN Reason Stop Dose Admin Dexamethasone Sodium Phosphate 10 mg 03/15/25 20:15 03/15/25 20:26 Dexamethasone 4mg/Ml 5ml Mdv PO 03/15/25 20:16 10 mg ONCE ONE Administration ORDERS Category Date Time Status Strep Scrn Group A (Rapid) Stat Lab 03/15/25 19:52 Completed Strep Screen Confirmation Stat Micro 03/15/25 19:52 Received Medical Decision Narrative: In summary patient is a 54-year-old female who presents the emergency department for evaluation of sore throat, ear pain. Patient is hemodynamically stable upon arrival, afebrile. Ulceration to posterior pharynx. Differential diagnosis includes strep, viral pharyngitis, otitis media. Initial workup will be conducted with strep swab. Initial inventions include Decadron for pain. Initial workup reviewed by me negative for. Upon repeat evaluation patient is r esting comfortable. Given this patient is appropriate for discharge home at this time with instructions for viral pharyngitis. Given return precautions and follow-up information.. Critical Care <BRENDA Pete - Last Filed: 03/15/25 20:23> Critical Care Time Critical Care Time: No
[2025-03-15] MEDS: DEXAMETHASONE 4MG/ML 5ML MDV 10 MG PO (20:26)
[2025-03-15 20:30] VITALS: BP 145/53; PULSE 92; RESP 16; TEMP 36.4; O2SAT 96
== END 2025-03-15 20:31 | disposition home or self-care (01) ==
PROVIDERS: Physician Assistant; Emergency Provider Student in an Organized Health Care Education/Training Program; PCP Internal Medicine
DX: J02.9 Acute pharyngitis, unspecified (principal); H92.01 Otalgia, right ear; Z87.891 Personal history of nicotine dependence
CPT/HCPCS: 87430; 99282; 99283; J1100